=== PATIENT | male | born 1970 | race Caucasian/White ===

== ENCOUNTER → 2016-08-05 | Outpatient (CLI) | payer BC ==
[~2016-08-05] MED LIST: SODIUM CHLORIDE 0.9% 250 ML in EMPTY BAG 1 BAG IV PRN; SODIUM CHLORIDE 0.9% 500 ML in EMPTY BAG 1 BAG IV PRN
[2016-08-05 09:17] VITALS: TEMP 98.3
[2016-08-05 10:35] VITALS: BP 119/63; PULSE 60; RESP 16
== END | disposition home or self-care (01) ==
LOC: PROCWHC3 08:53
PROVIDERS: ATTEND Physician Assistant
DX: K50.819 Crohn's disease of both small and large intestine with unspecified complications (principal)
CPT/HCPCS: 96361; 96413; 96415; J1745

== ENCOUNTER → 2016-09-23 | Outpatient (CLI) | payer BC ==
[2016-09-23 09:16] VITALS: RESP 18; TEMP 98.4
[2016-09-23 10:33] VITALS: BP 109/53; PULSE 53
== END | disposition home or self-care (01) ==
LOC: PROCWHC3 08:52
PROVIDERS: ATTEND Physician Assistant
DX: K50.90 Crohn's disease, unspecified, without complications (principal)
CPT/HCPCS: 96361; 96413; 96415; J1745

== ENCOUNTER → 2016-11-11 | Outpatient (CLI) | payer BC ==
[2016-11-11 09:49] VITALS: TEMP 98.9
[2016-11-11 10:25] VITALS: RESP 18
[2016-11-11 11:06] VITALS: BP 102/59; PULSE 58
== END ==
LOC: PROCWHC3 08:53
PROVIDERS: ATTEND Physician Assistant
DX: K50.90 Crohn's disease, unspecified, without complications (principal)
CPT/HCPCS: 96413; 96415; J1745

== ENCOUNTER → 2016-12-30 | Outpatient (CLI) | payer BC ==
[2016-12-30 09:08] VITALS: RESP 18; TEMP 98.8
[2016-12-30 10:30] VITALS: PULSE 69
[2016-12-30 11:12] VITALS: BP 128/72
== END | disposition home or self-care (01) ==
LOC: PROCWHC3 08:47
PROVIDERS: ATTEND Physician Assistant
DX: K50.90 Crohn's disease, unspecified, without complications (principal)
CPT/HCPCS: 96413; 96415; J1745

== ENCOUNTER → 2017-01-19 | Outpatient (CLI) | payer BC ==
--- NOTE | 2017-01-19 16:52 | CONS ---
This patient is a 46-year-old gentleman who has been evaluated in the sleep center for obstructive sleep apnea/hypopnea syndrome. HISTORY OF PRESENT ILLNESS/SLEEP-WAKE EVALUATION: The patient's usual sleep schedule is from 10 p.m. to 4 a.m. on working days and from around 11 p.m. to 8 or 8:30 a.m. on weekends. Sometimes he has problems with falling asleep. He has a TV set in his bedroom. He usually on the side position. The patient snores, and his family told him about episodes of stopped breathing during sleep. He wakes up from sleep once with nocturia. Positive history of sweating at night. In the morning he wakes up tired, has problems with concentration. [place] Sleepiness Scale has increased to 10. Past medical history is positive for: 1. Crohn's disease. 2. Hyperlipidemia. 3. Hypertension. MEDICATIONS: 1. Remicade. 2. Crestor. 3. Prednisone. 4. Medication for blood pressure; patient does not remember the exact name. That includes a water pill and hypertension medication. SOCIAL HISTORY: Negative for smoking. Alcohol consumption rarely. PAST SURGICAL HISTORY: None. FAMILY HISTORY: Snoring, sleep apnea, hypertension, hyperlipidemia, asthma. PHYSICAL EXAM: The patient is a 46-year-old gentleman without distress. VITAL SIGNS: Blood pressure 157/86, heart rate 70, respiratory rate 18. Height 73.5. Weight 292.2. BMI 38. Neck 19 inches in circumference. Temperature 98.1. Oxygen saturation on room air 98%. GENERAL: A pleasant patient without distress. HEENT: PERRLA. EOMI. Evaluation of oropharynx showed tongue protrudes midline. Extremely low position of soft palate. Mallampati IV. Nose with asymmetric nasal pillows. NECK: Supple. No JVD. Thyroid is not palpable. LUNGS: Clear to percussion and to auscultation. Good air exchange. No wheezing or rhonchi. HEART: S1, S2 regular. No murmurs, gallops or rubs. ABDOMEN: Obese. EXTREMITIES: No clubbing or cyanosis. BOTTOM SANDER: Awake, alert and oriented x3. Cranial nerves 2 through 7 are intact. There is no fasciculation or atrophy noted. No focal deficits observed. IMPRESSION: 1. Snoring, witnessed episodes of stopped breathing during sleep; extremely low position of soft palate; awakenings from sleep; wide neck; [place] Sleepiness Scale increased to 10; obstructive sleep apnea/hypopnea syndrome. 2. Obesity. BMI of 38. 3. Crohn's disease. 4. Hypertension. 5. Hyperlipidemia. PLAN: 1. Polysomnography for evaluation of patients breathing during sleep. 2. CPAP/BiPAP titration if sleep study confirms obstructive sleep apnea/ hypopnea syndrome. 3. Preferable position during sleep on the side. 4. No driving if feeling any sleepiness. Patient is aware of civil and criminal liability for unsafe driving. 5. I will see this patient for follow-up visit to explain results of the testing and follow-up plan. Thank you very much for referring this patient for consultation. Sincerely, Fredy Conn. , PhD, FAASM. Diplomat of [employer], Sleep Medicine Board by [employer] [facility] [place]: NENITA
== END ==
LOC: SLEEP 10:42
PROVIDERS: ATTEND Family Medicine
DX: G47.33 Obstructive sleep apnea (adult) (pediatric) (principal); E66.9 Obesity, unspecified; I10 Essential (primary) hypertension; E78.5 Hyperlipidemia, unspecified; K50.90 Crohn's disease, unspecified, without complications; Z68.38 Body mass index [BMI] 38.0-38.9, adult; Z79.899 Other long term (current) drug therapy
CPT/HCPCS: 99211

== ENCOUNTER 2017-01-31 08:44 | Inpatient (IN) | payer BC ==
[2017-01-31] MEDS ORDERED: HYDROmorphone 1 MG/ML 1 ML SYRINGE IVP STA (09:26)
[2017-01-31] MEDS ORDERED: RX INFO: IV CONTRAST WAS GIVEN 1 EACH MISC MISCELLANE PRN (09:26)
[2017-01-31] MEDS ORDERED: SODIUM CHLORIDE 0.9% 1,000 ML IV STA ×2 (09:26)
[2017-01-31] MEDS ORDERED: ONDANSETRON 4 MG/2 ML VIAL IVP STA (09:26)
[2017-01-31 09:44] LABS: Basophils # (A) 0.1 k/uL (0-0.2); Basophils % (A) 0 %; CH 30.5; CHCM 33.1; Eosinophils % (A) 0 %; HCT 49.3 % (39.0-53.0); HDW 2.41; HGB 16.1 gm/dL (13.0-17.5); Luc # (Auto) 0.24; Luc % (Auto) 2; Lymphocytes # (A) 1.3 k/uL (1.0-4.8); Lymphocytes % (A) 10 %; MCH 30.1 pg (25.0-35.0); MCHC 32.6 g/dL (31.0-37.0); MCV 92.5 fL (80.0-100.0); Mean Platelet Volume 6.9; Monocytes # (A) 1.3 k/uL (0-1.0); Monocytes % (A) 10 %; Neutrophils # (A) 10.5 k/uL (1.3-7.7); Neutrophils % (A) 78 %; RBC 5.33 m/uL (4.30-5.90); RDW 15.2 % (11.5-15.5); WBC 13.5 k/uL (3.8-10.6); WBC (Perox) 13.56
[2017-01-31 09:55] LABS: Calcium 11.3 mg/dL (8.4-10.2); Potassium 4.6 mmol/L (3.5-5.1); Total Bilirubin 1.1 mg/dL (0.2-1.3); Total Protein 8.8 g/dL (6.3-8.2)
--- NOTE | 2017-01-31 10:03 | ED ---
General Adult HPI - General Source: patient, RN notes reviewed Mode of arrival: ambulatory Limitations: no limitations <Malachi Gomes - Last Filed: 01/31/17 11:20> <Mikie Fernandez - Last Filed: 01/31/17 11:53> - General Chief complaint: Abdominal Pain Stated complaint: Constipated Time Seen by Provider: 01/31/17 09:21 - History of Present Illness Initial comments: Patient 46-year-old male who presents emergency room today with a chief complaint of increased abdominal pain over the last 3 days. He does admit that he's been experiencing some discomfort in right side of the abdomen. He states it feels similar to a bowel blockage that he's had twice in the past. Patient does admit to a history of Crohn's. He states she's not had a bowel movement the past 3 days. States pain seems to be increasing. Patient denies any fevers but states he has been sweating. He denies any other complaints or symptoms at this time. Patient denies any recent fever, chills, shortness of breath, chest pain, back pain, nausea or vomiting, numbness or tingling, dysuria or hematuria, diarrhea, headaches or visual changes, or any other complaints. (Malachi Gomes) - Related Data Home Medications Medication Instructions Recorded Confirmed Atenolol/Chlorthalidone 1 cap PO DAILY 12/13/13 01/31/17 [Atenolol-Chlorthalidone 100-25] Fenofibrate [Fenofibrate] 160 mg PO DAILY 12/13/13 01/31/17 Rosuvastatin Calcium [Crestor] 20 mg PO DAILY 12/13/13 01/31/17 amLODIPine BESYLATE/BENAZEPRIL 1 cap PO DAILY 12/13/13 01/31/17 [Amlodipine-Benazepril 5-40 mg] Acetaminophen [Tylenol] 650 mg PO Q6HR PRN 01/31/17 01/31/17 inFLIXimab [Remicade] 1 injection IVPB Q42D 01/31/17 01/31/17 Allergies Allergy/AdvReac Type Severity Reaction Status Date / Time No Known Allergies Allergy Verified 01/31/17 10:10 Review of Systems ROS Other: All systems not noted in ROS Statement are negative. <Malachi Gomes - Last Filed: 01/31/17 11:20> ROS Other: All systems not noted in ROS Statement are negative. <Mikie Fernandez - Last Filed: 01/31/17 11:53> ROS Statement: Those systems with pertinent positive or pertinent negative responses have been documented in the HPI. Past Medical History Past Medical History: Hyperlipidemia, Hypertension Additional Past Medical History / Comment(s): Chron's disease History of Any Multi-Drug Resistant Organisms: None Reported Additional Past Surgical History / Comment(s): Draining of Anal Fissure - 1995, 1996, 2003 Past Psychological History: No Psychological Hx Reported Smoking Status: Never smoker Past Alcohol Use History: None Reported Past Drug Use History: None Reported <Malachi Gomes - Last Filed: 01/31/17 11:20> General Exam Limitations: no limitations <Malachi Gomes - Last Filed: 01/31/17 11:20> <PrestonMikie hayden J - Last Filed: 01/31/17 11:53> - General Exam Comments Initial Comments: General: The patient is awake and alert, in no distress, and does not appear acutely ill. Eye: Pupils are equal, round and reactive to light, extra-ocular movements are intact. No nystagmus. There is normal conjunctiva bilaterally. No signs of icterus. Ears, nose, mouth and throat: There are moist mucous membranes and no oral lesions. Neck: The neck is supple, there is no tenderness or JVD. Cardiovascular: There is a regular rate and rhythm. No murmur, rub or gallop is appreciated. Respiratory: Lungs are clear to auscultation, respirations are non-labored, breath sounds are equal. No wheezes, stridor, rales, or rhonchi. Gastrointestinal: Normal. 7. Normal bowel sounds. Soft on palpation. Patient does have tenderness in the right flank. No rebound tenderness. No guarding. No CVA tenderness. Musculoskeletal: Normal ROM, no tenderness. Strength 5/5. Sensation intact. Pulses equal bilaterally 2+. Neurological: A&O x 3. CN II-XII intact, There are no obvious motor or sensory deficits. Coordination appears grossly intact. Speech is normal. Skin: Skin is warm and dry and no rashes or lesions are noted. Psychiatric: Cooperative, appropriate mood & affect, normal judgment. (Malachi Gomes) Medical Decision Making - Lab Data Result diagrams: 01/31/17 09:24 01/31/17 09:24 <Malachi Gomes - Last Filed: 01/31/17 11:20> - Lab Data Result diagrams: 01/31/17 09:24 01/31/17 09:24 <Mikie Fernandez - Last Filed: 01/31/17 11:53> - Medical Decision Making CT the abdomen and pelvis does show 1. Multiple segmented trophic panic abscess with extension to the undersurface of the right lateral abdomen wall. Associated abdominal wall thickening possible early intramuscular abscess formation. 2. Chronic changes of the Crohn's disease. As read by radiologist Dr. Cueto. Case discussed with attending physician who patient at bedside. Did discuss case with on-call surgeon Dr. Pak who will see the patient. Will be admitted to the hospitalist (Malachi Gomes) The patient was seen and examined. All diagnostics were reviewed. Case was discussed with surgery and internal medicine and patient is admitted to the hospital. The case is discussed with the PA and agree with the findings as documented. (Mikie Fernandez) - Lab Data Lab Results 01/31/17 01/31/17 01/31/17 Range/Units 09:24 09:24 09:57 WBC 13.5 H (3.8-10.6) k/uL RBC 5.33 (4.30-5.90) m/uL Hgb 16.1 (13.0-17.5) gm/dL Hct 49.3 (39.0-53.0) % MCV 92.5 (80.0-100.0) fL MCH 30.1 (25.0-35.0) pg MCHC 32.6 (31.0-37.0) g/dL RDW 15.2 (11.5-15.5) % Plt Count 409 (150-450) k/uL Neutrophils % 78 % Lymphocytes % 10 % Monocytes % 10 % Eosinophils % 0 % Basophils % 0 % Neutrophils # 10.5 H (1.3-7.7) k/uL Lymphocytes # 1.3 (1.0-4.8) k/uL Monocytes # 1.3 H (0-1.0) k/uL Eosinophils # 0.0 (0-0.7) k/uL Basophils # 0.1 (0-0.2) k/uL Sodium 140 (137-145) mmol/L Potassium 4.6 (3.5-5.1) mmol/L Chloride 92 L (98-107) mmol/L Carbon Dioxide 32 H (22-30) mmol/L Anion Gap 16 mmol/L BUN 30 H (9-20) mg/dL Creatinine 1.56 H (0.66-1.25) mg/dL Est GFR (MDRD) Af Amer 58 (>60 ml/min/1.73 sqM) Est GFR (MDRD) Non-Af 48 (>60 ml/min/1.73 sqM) Glucose 147 H (74-99) mg/dL Plasma Lactic Acid Stuart 1.5 (0.7-2.0) mmol/L Calcium 11.3 H (8.4-10.2) mg/dL Total Bilirubin 1.1 (0.2-1.3) mg/dL AST 18 (17-59) U/L ALT 37 (21-72) U/L Alkaline Phosphatase 61 (38-126) U/L Total Protein 8.8 H (6.3-8.2) g/dL Albumin 4.6 (3.5-5.0) g/dL Amylase 43 (30-110) U/L Lipase 59 (23-300) U/L Disposition Time of Disposition: 11:11 <Malachi Gomes - Last Filed: 01/31/17 11:20> <Mikie Fernandez - Last Filed: 01/31/17 11:53> Clinical Impression: Liver abscess, Crohns disease, Leukocytosis, Abdominal pain Disposition: ADMITTED IP TO THIS HOSP Condition: Stable Referrals: Mitra Portillo DO [Primary Care Provider] - 1-2 days
[2017-01-31] MEDS ORDERED: SODIUM CHLORIDE 0.9% 500 ML IV STA (10:08)
--- NOTE | 2017-01-31 10:17 | CT ---
EXAMINATION TYPE: CT abdomen pelvis w con DATE OF EXAM: 01/31/2017 COMPARISON: NONE HISTORY: Crohns, constipation CT DLP: 2780.6 mGycm CONTRAST: CT scan of the abdomen and pelvis is performed without Oral Contrast and with IV Contrast, patient in jected with 100 mL of Omnipaque 300. FINDINGS: LUNG BASES-: No visible nodule. No infiltrate. LIVER/GB: There is a large multiseptated hypoattenuating mass with internal complex fluid arising fro m the anterior segment right hepatic lobe with exophytic component extending to the undersurface of t he right lateral abdominal wall felt to reflect abscess. There is abdominal wall thickening as well a s one or 2 small areas of decreased attenuation within the musculature which may reflect additional a bscess formation. No additional hepatic masses are identified. Changes of hepatic steatosis noted. Th e gallbladder is grossly unremarkable. PANCREAS: No inflammation. No distinct mass. SPLEEN: No splenic enlargement. No lesion seen. ADRENALS: No nodule. No thickening. KIDNEYS/BLADDER: No hydronephrosis. No nephrolithiasis. Small simple cyst left kidney. Urinary trina dder grossly unremarkable. 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 No active inflammation however is identified at this time. Linear density is noted exte nding towards the sigmoid colon and this may be related prior fistulous communication. Normal bowel c aliber. GENITAL ORGANS: No gross abnormality. LYMPH NODES: No greater than 1cm abdominal or pelvic lymph nodes are appreciated. AORTA: No significant abnormality. OSSEOUS STRUCTURES: No significant abnormality is seen. OTHER: There is a fat-containing umbilical hernia. Fat-containing inguinal hernias right greater than left. IMPRESSION: 1. Multiseptated exophytic hepatic abscess with extension to the undersurface of the right lateral ab dominal wall. Associated abdominal wall thickening and possible early intramuscular abscess formation . 2. Chronic changes of Crohn's disease as discussed above. No active Crohn's disease is suspected at t his time.
[2017-01-31] MEDS ORDERED: PIPERACILLIN-TAZOBACTAM 3.375 GM in DEXTROSE/WATER 1 50ML.BAG IVPB STA (10:25)
[2017-01-31] MEDS ORDERED: NALOXONE 0.4 MG/ML 1 ML VIAL IV PRN (11:21)
[2017-01-31] MEDS ORDERED: ACETAMINOPHEN TAB 325 MG TAB PO PRN (11:21)
[2017-01-31] MEDS ORDERED: ONDANSETRON 4 MG/2 ML VIAL IVP PRN (11:21)
[2017-01-31 12:15] LABS: Appearance,Urine Clear (Clear); Bilirubin,Urine Negative (Negative); Glucose,Urine (UA) Negative (Negative); Ketones,Urine Negative (Negative); Leukocyte Esterase,Urine Negative (Negative); Mucus,Urine Rare /hpf; Nitrite,Urine Negative (Negative); Particle Count 3354; Protein,Urine 1+ (Negative); RBC,Urine 3 /hpf (0-5); Squamous Epithelial Cell,Urine <1 /hpf (0-4); UA Billing (MACRO vs. MICRO) MICRO; Urobilinogen,Urine <2.0 mg/dL (<2.0); WBC,Urine <1 /hpf (0-5)
[2017-01-31 12:18] LABS: Specific Gravity,Urine >1.050 (1.001-1.035)
--- NOTE | 2017-01-31 13:39 | P.CON ---
Consult Note - . Consult date: 01/31/17 Assessment/Plan:: Thank you very much for asking us to see Mr. Alejo. He has a long history of Crohn's disease for over 20 years. Has been on Remicade steroids antibiotics off-and-on for control. Did have inserted a CT-guided drainage off a liver abscess presents now with pain in the right flank for the last 3 days or so progressively worsening. Did have some chills today which shaking. He presented to the emergency room. Has been a little constipated over the last 3 days. Crohn's has been fairly stable over the years. Past history. Positive for Crohn's. 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 Social history family history well-documented. Systems review as above. No cardiac or respiratory problems. No urinary symptoms. On examination the patient is well-built well-nourished overweight at the 129 kg. Hydration borderline color satisfactory head and neck otherwise normal. Heart and lungs are clear. Abdomen is obese soft with tenderness in the right flank area. No definite mass palpable no guarding or rebound. Has an umbilical hernia asymptomatic. Extremities normal. HAND SURGEON intact. WBCs 13,500. CT was reviewed. Impression of hepatic abscess recurrent. History of Crohn's disease. Abscess most likely related to his Crohn's. Recommendation. Recommend attempt at CT-guided drainage of the abscess again with an antibiotic which may be needed long-term depending on the cultures. Dr. Boudreaux we'll follow him on his return.
[2017-01-31 14:41] LABS: INR 1.3 (<1.2); Prothrombin Time 13.1 sec (9.0-12.0)
[2017-01-31] MEDS: HYDROmorphone 1 MG/ML 1 ML SYRINGE IV PRN (14:57)
[2017-01-31] MEDS: PIPERACILLIN-TAZOBACTAM 3.375 GM in DEXTROSE/WATER 1 50ML.BAG IVPB SCH (17:34)
[2017-02-01] MEDS: HYDROmorphone 1 MG/ML 1 ML SYRINGE IV PRN ×4 (00:20→22:02)
[2017-02-01] MEDS: PIPERACILLIN-TAZOBACTAM 3.375 GM in DEXTROSE/WATER 1 50ML.BAG IVPB SCH ×4 (00:22→23:54)
[2017-02-01 07:05] LABS: Basophils % (A) 0 %; CH 30.2; CHCM 32.3; Eosinophils % (A) 0 %; HCT 38.8 % (39.0-53.0); HDW 2.46; Luc # (Auto) 0.21; Luc % (Auto) 2; Lymphocytes % (A) 11 %; MCH 29.7 pg (25.0-35.0); MCHC 31.6 g/dL (31.0-37.0); MCV 93.9 fL (80.0-100.0); Monocytes % (A) 10 %; Neutrophils # (A) 6.9 k/uL (1.3-7.7); Neutrophils % (A) 75 %; RBC 4.14 m/uL (4.30-5.90); RDW 15.3 % (11.5-15.5); WBC 9.1 k/uL (3.8-10.6); WBC (Perox) 9.07
[2017-02-01 07:14] LABS: HGB 12.3 gm/dL (13.0-17.5)
[2017-02-01 07:22] LABS: ALT 36 U/L (21-72); AST 13 U/L (17-59); Alkaline Phosphatase 49 U/L (38-126); Anion Gap 12 mmol/L; Blood Urea Nitrogen 31 mg/dL (9-20); Calcium 9.3 mg/dL (8.4-10.2); Carbon Dioxide 27 mmol/L (22-30); Chloride 100 mmol/L (98-107); Glucose 105 mg/dL (74-99); Non-African American GFR(MDRD) >60 (>60 ml/min/1.73 sqM); Sodium 139 mmol/L (137-145); Total Bilirubin 0.6 mg/dL (0.2-1.3); Total Protein 6.5 g/dL (6.3-8.2)
--- NOTE | 2017-02-01 07:58 | CT ---
EXAMINATION TYPE: CT guided abscess drainage DATE OF EXAM: 01/31/2017 COMPARISON: NONE HISTORY: drainage tube placement CT DLP: 4647 mGycm The procedure is discussed with the patient, the risks, complications, benefits and alternatives, wer e discussed and any questions were answered. Informed consent was obtained. The patient is placed p vladimir on the CT table, prepped and draped in the usual sterile fashion. Utilizing a 22-gauge Chiba needle access into the hepatic abscess was achieved and there is placement of a guidewire. Subsequent serial dilation 8 Kyrgyz with placement 8 Kyrgyz drainage catheter. Appr oximately 100 cc of purulent material was aspirated. Sample sent to pathology. All elements of maxim al barrier and sterile technique were utilized. The patient remained stable throughout the procedure with no immediate postprocedural complication. IMPRESSION: 1. Successful CT guided hepatic abscess drainage tubes insertion.
--- NOTE | 2017-02-01 09:25 | HP ---
CHIEF COMPLAINT: Abdominal pain. HISTORY OF PRESENT ILLNESS: Mr. Alejo is a 46-year-old male with known history of Crohn's disease and hypertension. Came to the ER with complaints of increased abdominal pain for the past 3 days. Patient says that the patient was having a right upper quadrant and flank pain, which has been getting worse and started as a discomfort. Patient does have history of Crohn's disease and has been taking Remicade and the patient had exacerbation and was using steroids as well. Currently, the patient denied any abdominal pain. Patient has been constipated for the last 3 days. Otherwise, patient came to the ER for further evaluation and the patient was also having ( ) fevers and chills at home. Denied any chest pain or short of breath. No nausea or vomiting. No numbness or tingling. Patient had CT of the abdomen and pelvis. It showed multiseptated exophytic hepatic abscess with extension to the undersurface of the right lateral abdominal wall. Patient did have liver abscess about 10 years ago. Patient was seen by General Surgery and recommended CT guided drainage and patient underwent CT guided drainage with pigtail catheter placement draining serosanguineous discharge now. The patient says that abdominal discomfort is much improved now. REVIEW OF SYSTEMS: CONSTITUTIONAL: The patient did have subjective fevers and chills and no weakness or fatigue. RESPIRATORY: No cough or sputum production. CARDIOVASCULAR: No chest pain or short of breath. ABDOMEN: The patient does have right upper quadrant abdominal discomfort. No nausea or vomiting. Patient did have constipation. GENITOURINARY: No dysuria. No hematuria. ENDOCRINE: Negative. PSYCHIATRY: Negative. SKIN: Negative. All other 14-point review of systems negative except the above. PAST MEDICAL HISTORY: Hypertension, Crohn's disease and previous history of liver abscess 10 years ago, hyperlipidemia. PAST SURGICAL HISTORY: Drainage of anal fissure, history of liver abscess drainage. SOCIAL HISTORY: Patient never a smoker. Denied any alcohol, denied any drugs or IVDU. FAMILY HISTORY: Denied history of hypertension, diabetes mellitus or premature heart disease in the family. ALLERGIES: No known drug allergies. Home medications include: 1. Atenolol. 2. Chlorthalidone. 3. Fenofibrate. 4. Crestor. 5. Amlodipine. 6. Tylenol. 7. Remicade. PHYSICAL EXAMINATION: A 46-year-old male lying in bed, comfortable; awake, alert, oriented x3. Appears to be in no apparent distress. VITALS: Blood pressure is 119/69. Pulse is 62. Respirations 16. Temperature afebrile. Pulse ox 95% on room air. HEENT: Atraumatic, normocephalic. Neck is supple. No JVD. CVS EXAM: S1 and S2 heard. No murmurs, no gallop, no rub. LUNGS: Bilateral air entry is present. No wheezing, no crackles. Nonlabored breathing. ABDOMEN: Soft, nontender. Bowel sounds are present. REPLENISHMENT SPECIALIST: Awake, alert, oriented x3. No focal deficit. EXTREMITIES: No edema. Pulses felt bilaterally. No clubbing or cyanosis. PSYCHIATRIC: Cooperative. LABORATORY DATA: WBC 13.5, hemoglobin 16.1, platelets 409. INR 1.3. Sodium 140 , potassium 4.6, chloride 92, bicarb is 32. BUN 30, creatinine 1.56. Lactic acid 1.5. Calcium 11.3. UA negative. CT of abdomen and pelvis reviewed. IMPRESSION: 1. Liver abscess, status post CT guided drainage. 2. History of Crohn's disease with recent exacerbation and chronically on Remicade and steroids on and off. 3. Previous history of liver abscess 10 years ago. 4. Hypertension. 5. Hyperlipidemia. 6. Sepsis secondary to liver abscess. Patient did have tachycardia and leukocytosis on admission. 7. Morbid obesity with body mass index of 36.6. 8. Acute kidney injury, likely prerenal. 9. Mild hypercalcemia. DISCUSSION AND PLAN: Patient will be continued on IV fluids, continue with antibiotics in the form of Zosyn and CT guided drainage was done. General Surgery is following the patient. Further recommendation based on the clinical course. Patient symptomatically improved after drainage. DONAVOND
--- NOTE | 2017-02-01 09:55 | P.CONS ---
History of Present Illness - Reason for Consult Consult date: 02/01/17 Abscess - History of Present Illness This is a 46-year-old male with past medical history significant for Crohn's disease on Remicade. He gives history that he has had 3 previous episodes of abscess formation but has been been pretty stable until July of this year. He states he has had quite a few flareups of since July and has been on antibiotics with Cipro or Levaquin and prednisone. He states he took his last dose of prednisone 3 days ago and he took Levaquin on Monday. Patient states he developed abdominal pain for 3 days on the right upper quadrant which continued to worsen. He denies having any fever or chills. He did not have a bowel movement prior to arrival for 3 days but he states he did have a bowel movement 4 AM today that was dark but no blood in it was not watery. He presented to [facility] emergency center on January 31. CAT scan of the abdomen and pelvis revealed multi septated exophytic hepatic abscess with extension to the undersurface of the right lateral abdominal wall. Associated abdominal wall thickening and possible early intramuscular abscess formation. Chronic changes of Crohn's disease but no active Crohn's disease suspected at this time. His white count was at 13.5 which is improved to 9. Patient also was found to have acute kidney injury with BUN of 30 and creatinine 1.56 which is improving. Patient was started on Zosyn and admitted to the [facility] floor. He subsequently underwent a CAT scan guided hepatic abscess drainage tube insertion with initially 100 mL of purulent material was aspirated. Cytology is pending. Gram stain showed many polymorphonuclear leukocytes and many gram-positive cocci and culture is in progress. The patient is on a soft diet and tolerating this with no nausea or vomiting. He's continues to have pressure in the right upper quadrant which is improved. Review of Systems All systems: negative Constitutional: Denies chills, Denies fever Eyes: denies blurred vision, denies pain Ears, nose, mouth and throat: Denies headache, Denies sore throat Cardiovascular: Denies chest pain, Denies shortness of breath Respiratory: Denies cough Gastrointestinal: Reports abdominal pain, Reports constipation, Denies diarrhea , Denies nausea, Denies vomiting Musculoskeletal: Denies myalgias Integumentary: Denies pruritus, Denies rash Neurological: Denies numbness, Denies weakness Psychiatric: Denies anxiety, Denies depression Endocrine: Denies fatigue, Denies weight change Past Medical History Past Medical History: Hyperlipidemia, Hypertension Additional Past Medical History / Comment(s): Chron's disease, abdominal bowel fissures and with first one he had severe infection, small bowel is narrowing, just completed home study for possible DIANNA-waiting for results. History of Any Multi-Drug Resistant Organisms: None Reported Additional Past Surgical History / Comment(s): Draining of bowel fiissure thru R side- 1995, 1996, 2003, colonoscopies. Past Anesthesia/Blood Transfusion Reactions: No Reported Reaction Smoking Status: Never smoker Additional Past Alcohol Use History / Comment(s): Patient is a lifelong nonsmoker. He denies any medical marijuana, marijuana, street drug or alcohol use. Patient is single and lives alone. He does not have pets in the home. 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 - Past Family History Father Family Medical History: No Reported History Mother Family Medical History: No Reported History Medications and Allergies Home Medications Medication Instructions Recorded Confirmed Type Atenolol/Chlorthalidone 1 cap PO DAILY 12/13/13 01/31/17 History [Atenolol-Chlorthalidone 100-25] Fenofibrate [Fenofibrate] 160 mg PO DAILY 12/13/13 01/31/17 History Rosuvastatin Calcium [Crestor] 20 mg PO DAILY 12/13/13 01/31/17 History amLODIPine BESYLATE/BENAZEPRIL 1 cap PO DAILY 12/13/13 01/31/17 History [Amlodipine-Benazepril 5-40 mg] Acetaminophen [Tylenol] 650 mg PO Q6HR PRN 01/31/17 01/31/17 History inFLIXimab [Remicade] 1 injection IVPB Q42D 01/31/17 01/31/17 History Allergies Allergy/AdvReac Type Severity Reaction Status Date / Time No Known Allergies Allergy Verified 01/31/17 10:10 Physical Exam Vitals: Vital Signs Temp Pulse Pulse Resp BP BP Pulse Ox 02/01/17 07:40 97.7 F 56 L 16 118/72 96 02/01/17 03:37 97.5 F L 54 L 17 118/65 95 01/31/17 21:00 97.3 F L 75 17 104/65 01/31/17 18:30 64 117/64 01/31/17 18:15 63 110/68 01/31/17 18:00 57 L 99/57 01/31/17 17:45 63 108/60 01/31/17 17:30 56 L 108/59 01/31/17 17:15 59 L 106/66 01/31/17 17:00 63 106/61 01/31/17 16:45 65 118/66 01/31/17 16:30 61 16 117/57 98 01/31/17 15:50 62 18 141/69 95 01/31/17 15:29 70 20 131/66 99 01/31/17 15:25 85 20 117/69 93 L 01/31/17 15:16 64 20 124/70 95 01/31/17 14:55 98.1 F 62 16 119/69 95 01/31/17 12:53 97.2 F L 70 16 126/60 95 01/31/17 12:28 98.6 F 68 20 113/55 93 L 01/31/17 10:13 76 18 115/68 92 L 01/31/17 09:35 99.1 F 84 16 155/76 94 L Intake and Output 01/31/17 02/01/17 02/01/17 22:59 06:59 14:59 Intake Total 100 600 250 Output Total 250 800 Balance -150 -200 250 Intake: Oral 100 600 250 Output: Urine 250 800 Other: # Bowel Movements 1 Gen: This is a 46-year-old obese male. He is in bed and appears to be comfortable. No acute distress is noted. HEENT: Head is atraumatic, normocephalic. Pupils equal, round. Sclerae is anicteric. Conjunctiva pink. Mucous members of the mouth are moist. No thrush noted. Dentition in good order.. NECK: Supple. No JVD. No lymphadenopathy. No thyromegaly. LUNGS: Clear to auscultation. No wheezes or rhonchi. No intercostal retractions. HEART: Regular rate and rhythm. No murmur. ABDOMEN: Soft. Bowel sounds are present. No masses. Tenderness to the right upper quadrant and right lateral abdomen. EXTREMITIES: No pedal edema. No calf tenderness. Dorsalis pedis +2 bilaterally. NEUROLOGICAL: Patient is awake, alert and oriented x3. Cranial nerves 2 through 12 are grossly intact. Results Results: Laboratory Results WBC 9.1 k/uL (3.8-10.6) 02/01/17 06:45 RBC 4.14 m/uL (4.30-5.90) L 02/01/17 06:45 Hgb 12.3 gm/dL (13.0-17.5) L D 02/01/17 06:45 Hct 38.8 % (39.0-53.0) L 02/01/17 06:45 MCV 93.9 fL (80.0-100.0) 02/01/17 06:45 MCH 29.7 pg (25.0-35.0) 02/01/17 06:45 MCHC 31.6 g/dL (31.0-37.0) 02/01/17 06:45 RDW 15.3 % (11.5-15.5) 02/01/17 06:45 Plt Count 277 k/uL (150-450) 02/01/17 06:45 Neutrophils % 75 % 02/01/17 06:45 Lymphocytes % 11 % 02/01/17 06:45 Monocytes % 10 % 02/01/17 06:45 Eosinophils % 0 % 02/01/17 06:45 Basophils % 0 % 02/01/17 06:45 Neutrophils # 6.9 k/uL (1.3-7.7) 02/01/17 06:45 Lymphocytes # 1.0 k/uL (1.0-4.8) 02/01/17 06:45 Monocytes # 1.0 k/uL (0-1.0) 02/01/17 06:45 Eosinophils # 0.0 k/uL (0-0.7) 02/01/17 06:45 Basophils # 0.0 k/uL (0-0.2) 02/01/17 06:45 PT 13.1 sec (9.0-12.0) H 01/31/17 09:24 INR 1.3 (<1.2) H 01/31/17 09:24 Sodium 139 mmol/L (137-145) 02/01/17 06:45 Potassium 4.0 mmol/L (3.5-5.1) 02/01/17 06:45 Chloride 100 mmol/L (98-107) 02/01/17 06:45 Carbon Dioxide 27 mmol/L (22-30) 02/01/17 06:45 Anion Gap 12 mmol/L 02/01/17 06:45 BUN 31 mg/dL (9-20) H 02/01/17 06:45 Creatinine 1.14 mg/dL (0.66-1.25) 02/01/17 06:45 Est GFR (MDRD) Af Amer >60 (>60 ml/min/1.73 sqM) 02/01/17 06:45 Est GFR (MDRD) Non-Af >60 (>60 ml/min/1.73 sqM) 02/01/17 06:45 Glucose 105 mg/dL (74-99) H 02/01/17 06:45 Plasma Lactic Acid [place] 1.5 mmol/L (0.7-2.0) 01/31/17 09:57 Calcium 9.3 mg/dL (8.4-10.2) 02/01/17 06:45 Total Bilirubin 0.6 mg/dL (0.2-1.3) 02/01/17 06:45 AST 13 U/L (17-59) L 02/01/17 06:45 ALT 36 U/L (21-72) 02/01/17 06:45 Alkaline Phosphatase 49 U/L (38-126) 02/01/17 06:45 Total Protein 6.5 g/dL (6.3-8.2) 02/01/17 06:45 Albumin 3.3 g/dL (3.5-5.0) L 02/01/17 06:45 Amylase 43 U/L (30-110) 01/31/17 09:24 Lipase 59 U/L (23-300) 01/31/17 09:24 Urine Color Yellow 01/31/17 10:17 Urine Appearance Clear (Clear) 01/31/17 10:17 Urine pH 6.0 (5.0-8.0) 01/31/17 10:17 Ur Specific [place] >1.050 (1.001-1.035) H 01/31/17 10:17 Urine Protein 1+ (Negative) H 01/31/17 10:17 Urine Glucose (UA) Negative (Negative) 01/31/17 10:17 Urine Ketones Negative (Negative) 01/31/17 10:17 Urine Blood Trace (Negative) H 01/31/17 10:17 Urine Nitrite Negative (Negative) 01/31/17 10:17 Urine Bilirubin Negative (Negative) 01/31/17 10:17 Urine Urobilinogen <2.0 mg/dL (<2.0) 01/31/17 10:17 Ur Leukocyte Esterase Negative (Negative) 01/31/17 10:17 Urine RBC 3 /hpf (0-5) 01/31/17 10:17 Urine WBC <1 /hpf (0-5) 01/31/17 10:17 Ur Squamous Epith Cells <1 /hpf (0-4) 01/31/17 10:17 Urine Mucus Rare /hpf (None) H 01/31/17 10:17 CBC & Chem 7: 02/01/17 06:45 02/01/17 06:45 Labs: Abnormal Lab Results - Last 24 Hours (Table) 01/31/17 01/31/17 01/31/17 Range/Units 09:24 09:24 09:24 WBC 13.5 H (3.8-10.6) k/uL RBC (4.30-5.90) m/uL Hgb (13.0-17.5) gm/dL Hct (39.0-53.0) % Neutrophils # 10.5 H (1.3-7.7) k/uL Monocytes # 1.3 H (0-1.0) k/uL PT 13.1 H (9.0-12.0) sec INR 1.3 H (<1.2) Chloride 92 L (98-107) mmol/L Carbon Dioxide 32 H (22-30) mmol/L BUN 30 H (9-20) mg/dL Creatinine 1.56 H (0.66-1.25) mg/dL Glucose 147 H (74-99) mg/dL Calcium 11.3 H (8.4-10.2) mg/dL AST (17-59) U/L Total Protein 8.8 H (6.3-8.2) g/dL Albumin (3.5-5.0) g/dL Ur Specific [place] (1.001-1.035) Urine Protein (Negative) Urine Blood (Negative) Urine Mucus (None) /hpf 01/31/17 02/01/1717 Range/Units 10:17 06:45 06:45 WBC (3.8-10.6) k/uL RBC 4.14 L (4.30-5.90) m/uL Hgb 12.3 L D (13.0-17.5) gm/dL Hct 38.8 L (39.0-53.0) % Neutrophils # (1.3-7.7) k/uL Monocytes # (0-1.0) k/uL PT (9.0-12.0) sec INR (<1.2) Chloride (98-107) mmol/L Carbon Dioxide (22-30) mmol/L BUN 31 H (9-20) mg/dL Creatinine (0.66-1.25) mg/dL Glucose 105 H (74-99) mg/dL Calcium (8.4-10.2) mg/dL AST 13 L (17-59) U/L Total Protein (6.3-8.2) g/dL Albumin 3.3 L (3.5-5.0) g/dL Ur Specific [place] >1.050 H (1.001-1.035) Urine Protein 1+ H (Negative) Urine Blood Trace H (Negative) Urine Mucus Rare H (None) /hpf Microbiology - Last 24 Hours (Table) 01/31/17 15:40 Gram Stain - Preliminary Aspirate Body Fluid Culture - Preliminary 01/31/17 15:40 Anaerobic Culture - Preliminary Aspirate Assessment and Plan Plan: This is a 46-year-old male who presented to the hospital with abdominal pain and found on CAT scan to have hepatic abscess status post CT guided drainage tube placement secondary to his underlying Crohn's disease. Patient is currently on Zosyn which will be continued. Await culture and cytology reports. Continue supportive care. Further recommendations as patient progresses. The above dictated assessment and findings were discussed with Dr. Loyd. The impression and plan of care have been directed as dictated. Argelia Arce nurse practitioner acting as scribe for Dr. Loyd.
--- NOTE | 2017-02-01 10:35 | P.CONS ---
History of Present Illness - Reason for Consult Consult date: 02/01/17 Liver abscess Requesting physician: Cristina Villarreal - History of Present Illness 46-year-old gentleman with a history of Crohn's ileitis diagnosed about 20 years ago maintained on Remicade with multiple perirectal/abdominal fistulas last one approximately 10 years ago; percutaneously drained. Admitted with abdominal pain the last 3-4 days without fever or hematemesis hematochezia or melena. Patient's last dose of Remicade was about 5-6 weeks ago. He has been on prednisone for the last 2 months secondary to Crohn's flareup type symptoms with increased nonbloody bowel movements. He weaned himself down to 20 mg of prednisone daily last week but increased it to 40 mg daily a few days prior to hospitalization. CT abdomen and pelvis reported multiseptated exophytic hepatic abscess with extension to the undersurface of the right lateral abdominal wall with associated abdominal wall thickening possible early intramuscular abscess formation. Chronic changes of the distal ileum terminal ileum compatible with history of Crohn's disease without active Crohn's disease. No interloop bowel abscesses mentioned. White count 9.1-13.5. Hemoglobin 12.3. INR 1.3. BUN 30. Creatinine 1.5. LFTs normal. T-max 99.3. He underwent percutaneous drainage of liver abscess yesterday with 100 mL removal of purulent aspirate; fluid culture obtained. Last colonoscopy to his memory about 3-4 years ago. Presently denies diarrhea he had 1 bowel movement this morning. Review of Systems Constitutional: Denies fever, chills, sweats, weight gain, or loss. HEENT: Negative for migraines, blurred vision or loss, earaches, drainage, tinnitus, oral mucosal lesions, dysphagia, or odynophagia. Cardiac: Hyperlipidemia. Hypertension. Negative for chest pain, arrhythmias, or palpitation. Respiratory: Negative for shortness of breath, hemoptysis, cough, or sputum production. Gastrointestinal: See HPI for pertinent findings. Genitourinary: Negative for hematuria, urgency, frequency, polyuria, dysuria, or penile discharge. Musculoskeletal: Negative for muscle aches, swelling, arthritis, and arthralgias. Neurologic: Negative for stroke or TIA. Endocrine: Negative for thyroid problems. Skin: Negative for rash or itching. Psychiatric: Negative history for depression and anxiety All systems: negative (See HPI) Past Medical History Past Medical History: Hyperlipidemia, Hypertension Additional Past Medical History / Comment(s): Chron's disease, abdominal bowel fissures and with first one he had severe infection, small bowel is narrowing, just completed home study for possible DIANNA-waiting for results. History of Any Multi-Drug Resistant Organisms: None Reported Additional Past Surgical History / Comment(s): Draining of bowel fiissure thru R side- 1995, 1996, 2003, colonoscopies. Past Anesthesia/Blood Transfusion Reactions: No Reported Reaction Smoking Status: Never smoker Additional Past Alcohol Use History / Comment(s): Patient is a lifelong nonsmoker. He denies any medical marijuana, marijuana, street drug or alcohol use. Patient is single and lives alone. He does not have pets in the home. 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 - Past Family History Father Family Medical History: No Reported History Mother Family Medical History: No Reported History Medications and Allergies Home Medications Medication Instructions Recorded Confirmed Type Atenolol/Chlorthalidone 1 cap PO DAILY 12/13/13 01/31/17 History [Atenolol-Chlorthalidone 100-25] Fenofibrate [Fenofibrate] 160 mg PO DAILY 12/13/13 01/31/17 History Rosuvastatin Calcium [Crestor] 20 mg PO DAILY 12/13/13 01/31/17 History amLODIPine BESYLATE/BENAZEPRIL 1 cap PO DAILY 12/13/13 01/31/17 History [Amlodipine-Benazepril 5-40 mg] Acetaminophen [Tylenol] 650 mg PO Q6HR PRN 01/31/17 01/31/17 History inFLIXimab [Remicade] 1 injection IVPB Q42D 01/31/17 01/31/17 History Allergies Allergy/AdvReac Type Severity Reaction Status Date / Time No Known Allergies Allergy Verified 01/31/17 10:10 Physical Exam Vitals: Vital Signs Temp Pulse Pulse Resp BP BP Pulse Ox 02/01/17 07:40 97.7 F 56 L 16 118/72 96 02/01/17 03:37 97.5 F L 54 L 17 118/65 95 01/31/17 21:00 97.3 F L 75 17 104/65 01/31/17 18:30 64 117/64 01/31/17 18:15 63 110/68 01/31/17 18:00 57 L 99/57 01/31/17 17:45 63 108/60 01/31/17 17:30 56 L 108/59 01/31/17 17:15 59 L 106/66 01/31/17 17:00 63 106/61 01/31/17 16:45 65 118/66 01/31/17 16:30 61 16 117/57 98 01/31/17 15:50 62 18 141/69 95 01/31/17 15:29 70 20 131/66 99 01/31/17 15:25 85 20 117/69 93 L 01/31/17 15:16 64 20 124/70 95 01/31/17 14:55 98.1 F 62 16 119/69 95 01/31/17 12:53 97.2 F L 70 16 126/60 95 01/31/17 12:28 98.6 F 68 20 113/55 93 L Intake and Output 01/31/17 02/01/17 02/01/17 22:59 06:59 14:59 Intake Total 100 600 250 Output Total 250 800 Balance -150 -200 250 Intake: Oral 100 600 250 Output: Urine 250 800 Other: # Bowel Movements 1 General appearance: The patient is alert, oriented, in no acute distress. HET: Head is normocephalic and atraumatic. Pupils are equal and reactive. Oropharynx is clear without lesions. Neck: Supple without lymphadenopathy. Trachea midline. Heart: S1 S2. Regular rate and rhythm. Lungs: No crackles or wheezes are heard. Abdomen: Soft, right abdominal wall percutaneous drain with serosanguineous purulent drainage with minimal tenderness. No erythema or induration or warmth appreciated. Nondistended with bowel sounds. No peritoneal signs. No palpable organomegaly or masses. Extremities: Normal skin color and turgor. No cyanosis, rash, ulceration, clubbing, or edema. Radial and pedal pulses are 2/4 bilaterally. Neurological: No focal deficits. Strength and sensation are grossly intact. Results CBC & Chem 7: 02/01/17 06:45 02/01/17 06:45 Labs: Abnormal Lab Results - Last 24 Hours (Table) 01/31/17 01/31/17 02/01/17 Range/Units 09:24 10:17 06:45 RBC 4.14 L (4.30-5.90) m/uL Hgb 12.3 L D (13.0-17.5) gm/dL Hct 38.8 L (39.0-53.0) % PT 13.1 H (9.0-12.0) sec INR 1.3 H (<1.2) BUN (9-20) mg/dL Glucose (74-99) mg/dL AST (17-59) U/L Albumin (3.5-5.0) g/dL Ur Specific [place] >1.050 H (1.001-1.035) Urine Protein 1+ H (Negative) Urine Blood Trace H (Negative) Urine Mucus Rare H (None) /hpf 02/01/17 Range/Units 06:45 RBC (4.30-5.90) m/uL Hgb (13.0-17.5) gm/dL Hct (39.0-53.0) % PT (9.0-12.0) sec INR (<1.2) BUN 31 H (9-20) mg/dL Glucose 105 H (74-99) mg/dL AST 13 L (17-59) U/L Albumin 3.3 L (3.5-5.0) g/dL Ur Specific [place] (1.001-1.035) Urine Protein (Negative) Urine Blood (Negative) Urine Mucus (None) /hpf Microbiology - Last 24 Hours (Table) 01/31/17 15:40 Gram Stain - Preliminary Aspirate Body Fluid Culture - Preliminary 01/31/17 15:40 Anaerobic Culture - Preliminary Aspirate CT scan - abdomen: report reviewed (Dr. You) Assessment and Plan (1) Liver abscess Narrative/Plan: Status post percutaneous drainage Status: Acute (2) Abdominal pain Status: Acute (3) Crohns disease Status: Acute Plan: 1. IV antibiotics with ID consultation. General surgical consultation. 2. Diet as tolerated. Hold off on steroids for now as there is no evidence of active Crohn's disease on CT. Hold Remicade infusion on February 15 will be postponed until present infection is resolved. Continue supportive measures. Will follow closely with you. Thank you for this kind referral and the opportunity to participate in the care of your patient. This consultation was discussed with Dr. You. The impression and plan of care have been directed as dictated.
[2017-02-01 15:17] VITALS: BMI 36.6
--- NOTE | 2017-02-01 16:54 | P.CON ---
Consult Note - . Consult date: 02/01/17 Assessment/Plan:: This is a 46-year-old male with past medical history significant for Crohn's disease on Remicade. He gives history that he has had 3 previous episodes of abscess formation but has been been pretty stable until July of this year. He states he has had quite a few flareups of since July and has been on antibiotics with Cipro or Levaquin and prednisone. He states he took his last dose of prednisone 3 days ago and he took Levaquin on Monday. Patient states he developed abdominal pain for 3 days on the right upper quadrant which continued to worsen. He denies having any fever or chills. He did not have a bowel movement prior to arrival for 3 days but he states he did have a bowel movement 4 AM today that was dark but no blood in it was not watery. He presented to [facility] emergency center on January 31. CAT scan of the abdomen and pelvis revealed multi septated exophytic hepatic abscess with extension to the undersurface of the right lateral abdominal wall. Associated abdominal wall thickening and possible early intramuscular abscess formation. Chronic changes of Crohn's disease but no active Crohn's disease suspected at this time. His white count was at 13.5 which is improved to 9. Patient also was found to have acute kidney injury with BUN of 30 and creatinine 1.56 which is improving. Patient was started on Zosyn and admitted to the [facility] floor. He subsequently underwent a CAT scan guided hepatic abscess drainage tube insertion with initially 100 mL of purulent material was aspirated. Cytology is pending. Gram stain showed many polymorphonuclear leukocytes and many gram-positive cocci and culture is in progress. The patient is on a soft diet and tolerating this with no nausea or vomiting. He's continues to have pressure in the right upper quadrant which is improved. Please see the consult note is dictated by nurse practitioner Argelia Yazmin. This pleasant 46-year-old male has a long-standing history of Crohn's disease who in 2002 developed a hepatic abscess. It is noted the patient was feeling poorly for a few days. He was having difficulties with his Crohn's disease. He increase his level of immunosuppression with his prednisone. And then he developed the significant increasing abdominal pain. His coworkers related that he looked ill and pale. As the pain increased he finally presented to the emergency center and as noted was found evidence of the significant hepatic abscess. He is now status post percutaneous drainage and likely has a streptococcal infection. The pathophysiology of hepatic abscesses discussed with the patient in that it routinely is related to bowel disease and immunosuppression. If possible moxifloxacin can be utilized at the time of his discharge however likely will need intravenous antibiotic therapy. Currently responding well to Zosyn. Blood cultures are negative so far. Going supportive care. Pain management is adequate. Albumin is low. We'll check a pre-albumin likely need protein supplementation to help him with his recovery. Multivitamin with zinc will be added. I will monitor. I agree with evaluation, assessment and plan as dictated by nurse practitioner Mrs. Argelia Arce.
--- NOTE | 2017-02-01 18:40 | P.PN ---
Subjective Principal diagnosis: Hepatic abscess Patient feels better today after his percutaneous drainage yesterday. Still with some purulent drainage from the drain itself. He is currently afebrile. Cultures are showing gram-positive cocci. Anaerobic is negative thus far. Objective - Vital Signs Vital signs: Vital Signs Temp 97.7 F 02/01/17 07:40 Pulse 56 L 02/01/17 07:40 Resp 16 02/01/17 07:40 BP 118/72 02/01/17 07:40 Pulse Ox 96 02/01/17 07:40 Intake & Output 01/31/17 02/01/17 02/01/17 18:59 06:59 18:59 Intake Total 700 250 Output Total 1050 800 Balance -350 -550 Weight 129.274 kg 129.274 kg Intake: Oral 700 250 Output: Urine 1050 800 Other: # Voids 3 # Bowel Movements 1 - Exam Abdomen: Soft, Mild right upper quadrant tenderness - Labs CBC & Chem 7: 02/01/17 06:45 02/01/17 06:45 Labs: Abnormal Lab Results - Last 24 Hours (Table) 02/01/17 02/01/17 Range/Units 06:45 06:45 RBC 4.14 L (4.30-5.90) m/uL Hgb 12.3 L D (13.0-17.5) gm/dL Hct 38.8 L (39.0-53.0) % BUN 31 H (9-20) mg/dL Glucose 105 H (74-99) mg/dL AST 13 L (17-59) U/L Albumin 3.3 L (3.5-5.0) g/dL Microbiology - Last 24 Hours (Table) 01/31/17 09:57 Blood Culture - Preliminary Blood No Growth after 24 hours 01/31/17 15:40 Gram Stain - Preliminary Aspirate Body Fluid Culture - Preliminary 01/31/17 15:40 Anaerobic Culture - Preliminary Aspirate Assessment and Plan (1) Liver abscess Narrative/Plan: Continue IV antibiotics. Continue drain to dependent drainage. Continue diet. We'll follow with you. Status: Acute
--- NOTE | 2017-02-01 23:52 | P.PN ---
Subjective Mr. Alejo is a 46-year-old male with known history of Crohn's disease and hypertension. Came to the ER with complaints of increased abdominal pain for the past 3 days. Patient says that the patient was having a right upper quadrant and flank pain, which has been getting worse and started as a discomfort. Patient does have history of Crohn's disease and has been taking Remicade and the patient had exacerbation and was using steroids as well. Currently, the patient denied any abdominal pain. Patient has been constipated for the last 3 days. Otherwise, patient came to the ER for further evaluation and the patient was also having fevers and chills at home. Denied any chest pain or short of breath. No nausea or vomiting. No numbness or tingling. Patient had CT of the abdomen and pelvis. It showed multiseptated exophytic hepatic abscess with extension to the undersurface of the right lateral abdominal wall. Patient was seen by General Surgery and recommended CT guided drainage and patient underwent CT guided drainage with pigtail catheter placement draining serosanguineous discharge now. The patient says that abdominal discomfort is much improved now. On 02/01/2017 - patient denies having any new complaints. Patient states his abdominal pain has improved a lot. Review of systems Cardiac - no chest pain palpitations Respiratory - no cough no difficulty in breathing - no dysuria or hematuria [employer] - denies having any headaches blurring of vision slurring of speech Objective - Vital Signs Vital signs: Vital Signs Temp 96.1 F L 02/01/17 20:23 Pulse 93 02/01/17 20:23 Resp 16 02/01/17 20:23 BP 143/79 02/01/17 20:23 Pulse Ox 95 02/01/17 20:23 Intake & Output 02/01/17 02/01/17 02/02/17 06:59 18:59 06:59 Intake Total 700 250 840 Output Total 1050 800 Balance -350 -550 840 Weight 129.274 kg Intake: Oral 700 250 840 Output: Urine 1050 800 Other: # Voids 3 1 # Bowel Movements 1 - Exam HEENT: Atraumatic, normocephalic. Neck is supple. No JVD. CVS EXAM: S1 and S2 heard. No murmurs, no gallop, no rub. LUNGS: Bilateral air entry is present. No wheezing, no crackles. Nonlabored breathing. ABDOMEN: Soft, nontender. Bowel sounds are present. Hepatic drain in place with some serosanguineous discharge. [employer]: Awake, alert, oriented x3. No focal deficit. EXTREMITIES: No edema. Pulses felt bilaterally. No clubbing or cyanosis. PSYCHIATRIC: Cooperative - Labs CBC & Chem 7: 02/01/17 06:45 02/01/17 06:45 Labs: Abnormal Lab Results - Last 24 Hours (Table) 02/01/17 02/01/17 Range/Units 06:45 06:45 RBC 4.14 L (4.30-5.90) m/uL Hgb 12.3 L D (13.0-17.5) gm/dL Hct 38.8 L (39.0-53.0) % BUN 31 H (9-20) mg/dL Glucose 105 H (74-99) mg/dL AST 13 L (17-59) U/L Albumin 3.3 L (3.5-5.0) g/dL Microbiology - Last 24 Hours (Table) 01/31/17 09:57 Blood Culture - Preliminary Blood No Growth after 24 hours 01/31/17 15:40 Gram Stain - Preliminary Aspirate Body Fluid Culture - Preliminary 01/31/17 15:40 Anaerobic Culture - Preliminary Aspirate Assessment and Plan Plan: 1. Liver abscess, status post CT guided drainage. 2. History of Croh. n's disease with recent exacerbation and chronically on Remicade and steroids on and off. 3. Previous history of liver abscess 10 years ago. 4. Hypertension. 5. Hyperlipidemia. 6. Sepsis secondary to liver abscess. Patient did have tachycardia and leukocytosis on admission. 7. Morbid obesity with body mass index of 36.6. 8. Acute kidney injury, likely prerenal. 9. Mild hypercalcemia. DISCUSSION AND PLAN: Patient will be continued on IV fluids, continue with antibiotics in the form of Zosyn and CT guided drainage was done. General Surgery is following the patient. Further recommendation based on the clinical course. Patient symptomatically improved after drainage.
[2017-02-02] MEDS: HYDROmorphone 1 MG/ML 1 ML SYRINGE IV PRN ×5 (04:12→23:28)
[2017-02-02] MEDS: PIPERACILLIN-TAZOBACTAM 3.375 GM in DEXTROSE/WATER 1 50ML.BAG IVPB SCH ×3 (08:19→23:29)
[2017-02-02] MEDS: MULTIVITAMINS, THERA 1 EACH TAB PO SCH (11:31)
--- NOTE | 2017-02-02 11:53 | P.PN ---
Subjective Principal diagnosis: Liver abscess History of Crohn's. Status post percutaneous drainage for liver abscess. Feels better. Afebrile. Reports mild right-sided abdominal pain. Blood cultures no growth so far. Fluid cultures pending. Multiple consultants following. Objective - Vital Signs Vital signs: Vital Signs Temp 98.4 F 02/02/17 08:14 Pulse 90 02/02/17 08:14 Resp 18 02/02/17 08:14 BP 152/85 02/02/17 08:14 Pulse Ox 93 L 02/02/17 08:14 Intake & Output 02/01/17 02/02/17 02/02/17 18:59 06:59 18:59 Intake Total 250 1140 360 Output Total 800 175 800 Balance -550 965 -440 Weight 129.274 kg 129.274 kg Intake: Intake, IV Titration 50 Amount Piperacillin-Tazobactam 3 50 .375 gm In Dextrose/Water 1 50ml.bag @ 12.5 mls/hr IVPB Q8HR [facility] Rx#: [id number] Oral 250 1090 360 Output: Drainage 175 Right Upper Distal 175 Abdomen Urine 800 800 Other: # Voids 3 1 1 # Bowel Movements 1 - Exam General appearance: The patient is alert, oriented, in no acute distress. HET: Head is normocephalic and atraumatic. Pupils are equal and reactive. Oropharynx is clear without lesions. Neck: Supple without lymphadenopathy. Trachea midline. Heart: S1 S2. Regular rate and rhythm. Lungs: No crackles or wheezes are heard. Abdomen: Soft, right abdominal wall percutaneous drain with serosanguineous purulent drainage with minimal tenderness. No erythema or induration or warmth appreciated. Nondistended with bowel sounds. No peritoneal signs. No palpable organomegaly or masses. Extremities: Normal skin color and turgor. No cyanosis, rash, ulceration, clubbing, or edema. Radial and pedal pulses are 2/4 bilaterally. Neurological: No focal deficits. Strength and sensation are grossly intact. - Labs CBC & Chem 7: 02/01/17 06:45 02/01/17 06:45 Labs: Abnormal Lab Results - Last 24 Hours (Table) 02/02/17 02/02/17 Range/Units 06:56 06:56 ESR 91 H (0-15) mm/hr Prealbumin 16 L (18-36) mg/dL Microbiology - Last 24 Hours (Table) 01/31/17 09:57 Blood Culture - Preliminary Blood No Growth after 24 hours Assessment and Plan (1) Liver abscess Narrative/Plan: Status post percutaneous drainage Status: Acute (2) Abdominal pain Status: Acute (3) Crohns disease Status: Acute Plan: 1. IV antibiotics. 2. Diet as tolerated. Hold next dose of Remicade. RTO 03/02 for reevaluation. Will sign off. Assessment and plan a care discussed with Dr. You
--- NOTE | 2017-02-02 13:05 | P.PN ---
Subjective Principal diagnosis: Hepatic abscess Patient is his abdominal discomfort is improved. He is tolerating his regular diet. Drain is still purulent in nature. Objective - Vital Signs Vital signs: Vital Signs Temp 98.4 F 02/02/17 08:14 Pulse 90 02/02/17 08:14 Resp 18 02/02/17 08:14 BP 152/85 02/02/17 08:14 Pulse Ox 93 L 02/02/17 08:14 Intake & Output 02/01/17 02/02/17 02/02/17 18:59 06:59 18:59 Intake Total 250 1140 360 Output Total 800 175 800 Balance -550 965 -440 Weight 129.274 kg 129.274 kg Intake: Intake, IV Titration 50 Amount Piperacillin-Tazobactam 3 50 .375 gm In Dextrose/Water 1 50ml.bag @ 12.5 mls/hr IVPB Q8HR [facility] Rx#: [id number] Oral 250 1090 360 Output: Drainage 175 Right Upper Distal 175 Abdomen Urine 800 800 Other: # Voids 3 1 1 # Bowel Movements 1 - Exam Abdomen: Soft, mild right upper quadrant tenderness, no rebound or guarding - Labs CBC & Chem 7: 02/01/17 06:45 02/01/17 06:45 Labs: Abnormal Lab Results - Last 24 Hours (Table) 02/02/17 02/02/17 Range/Units 06:56 06:56 ESR 91 H (0-15) mm/hr Prealbumin 16 L (18-36) mg/dL Microbiology - Last 24 Hours (Table) 01/31/17 09:57 Blood Culture - Preliminary Blood No Growth after 48 hours Assessment and Plan (1) Liver abscess Narrative/Plan: Continue antibiotic per infectious disease. No surgical intervention planned at this time. We'll sign off at this point. Please contact if needed. Status: Acute
--- NOTE | 2017-02-02 21:36 | P.PN ---
Subjective Principal diagnosis: Hepatic abscess This is a 46-year-old male with past medical history significant for Crohn's disease on Remicade. He gives history that he has had 3 previous episodes of abscess formation but has been been pretty stable until July of this year. He states he has had quite a few flareups of since July and has been on antibiotics with Cipro or Levaquin and prednisone. He states he took his last dose of prednisone 3 days ago and he took Levaquin on Monday. Patient states he developed abdominal pain for 3 days on the right upper quadrant which continued to worsen. He denies having any fever or chills. He did not have a bowel movement prior to arrival for 3 days but he states he did have a bowel movement 4 AM today that was dark but no blood in it was not watery. He presented to [facility] emergency center on January 31. CAT scan of the abdomen and pelvis revealed multi septated exophytic hepatic abscess with extension to the undersurface of the right lateral abdominal wall. Associated abdominal wall thickening and possible early intramuscular abscess formation. Chronic changes of Crohn's disease but no active Crohn's disease suspected at this time. His white count was at 13.5 which is improved to 9. Patient also was found to have acute kidney injury with BUN of 30 and creatinine 1.56 which is improving. Patient was started on Zosyn and admitted to the [facility] floor. He subsequently underwent a CAT scan guided hepatic abscess drainage tube insertion with initially 100 mL of purulent material was aspirated. Cytology is pending. Gram stain showed many polymorphonuclear leukocytes and many gram-positive cocci and culture is in progress. The patient is on a soft diet and tolerating this with no nausea or vomiting. He's continues to have pressure in the right upper quadrant which is improved. Patient is definitely feeling better today. He was able to eat 3 meals but then developed some significant abdominal distention there is now improving after some pain medication. He did not develop nausea or emesis. Pain is improved this evening. Denies further high-grade fevers, chills or rigors. Objective - Vital Signs Vital signs: Vital Signs Temp 98.7 F 02/02/17 19:31 Pulse 76 02/02/17 19:31 Resp 16 02/02/17 20:19 BP 145/83 02/02/17 19:31 Pulse Ox 92 L 02/02/17 19:31 Intake & Output 02/02/17 02/02/17 02/03/17 06:59 18:59 06:59 Intake Total 1140 1130 Output Total 175 1600 Balance 965 -470 Weight 129.274 kg Intake: Intake, IV Titration 50 50 Amount Piperacillin-Tazobactam 3 50 50 .375 gm In Dextrose/Water 1 50ml.bag @ 12.5 mls/hr IVPB Q8HR [facility] Rx#: [id number] Oral 1090 1080 Output: Drainage 175 Right Upper Distal 175 Abdomen Urine 1600 Other: Voiding Method Toilet # Voids 1 1 1 # Bowel Movements 1 - Exam Gen: This is a 46-year-old obese male. He is in bed and appears to be comfortable. No acute distress is noted. HEENT: Head is atraumatic, normocephalic. Pupils equal, round. Sclerae is anicteric. Conjunctiva pink. Mucous members of the mouth are moist. No thrush noted. Dentition in good order.. NECK: Supple. No JVD. No lymphadenopathy. No thyromegaly. LUNGS: Clear to auscultation. No wheezes or rhonchi. No intercostal retractions. HEART: Regular rate and rhythm. No murmur. ABDOMEN: Soft. Bowel sounds are present. No masses. Tenderness to the right upper quadrant and right lateral abdomen. No significant bruising. The drain is in place draining the some large amount of the bilious thick material EXTREMITIES: No pedal edema. No calf tenderness. Dorsalis pedis +2 bilaterally. NEUROLOGICAL: Patient is awake, alert and oriented x3 - Labs CBC & Chem 7: 02/01/17 06:45 02/01/17 06:45 Labs: Abnormal Lab Results - Last 24 Hours (Table) 02/02/17 02/02/17 Range/Units 06:56 06:56 ESR 91 H (0-15) mm/hr Prealbumin 16 L (18-36) mg/dL Microbiology - Last 24 Hours (Table) 01/31/17 15:40 Gram Stain - Preliminary Aspirate Body Fluid Culture - Preliminary Alpha Hemolytic Streptococcus 01/31/17 09:57 Blood Culture - Preliminary Blood No Growth after 48 hours Laboratory Results WBC 9.1 k/uL (3.8-10.6) 02/01/17 06:45 RBC 4.14 m/uL (4.30-5.90) L 02/01/17 06:45 Hgb 12.3 gm/dL (13.0-17.5) L D 02/01/17 06:45 Hct 38.8 % (39.0-53.0) L 02/01/17 06:45 MCV 93.9 fL (80.0-100.0) 02/01/17 06:45 MCH 29.7 pg (25.0-35.0) 02/01/17 06:45 MCHC 31.6 g/dL (31.0-37.0) 02/01/17 06:45 RDW 15.3 % (11.5-15.5) 02/01/17 06:45 Plt Count 277 k/uL (150-450) 02/01/17 06:45 Neutrophils % 75 % 02/01/17 06:45 Lymphocytes % 11 % 02/01/17 06:45 Monocytes % 10 % 02/01/17 06:45 Eosinophils % 0 % 02/01/17 06:45 Basophils % 0 % 02/01/17 06:45 Neutrophils # 6.9 k/uL (1.3-7.7) 02/01/17 06:45 Lymphocytes # 1.0 k/uL (1.0-4.8) 02/01/17 06:45 Monocytes # 1.0 k/uL (0-1.0) 02/01/17 06:45 Eosinophils # 0.0 k/uL (0-0.7) 02/01/17 06:45 Basophils # 0.0 k/uL (0-0.2) 02/01/17 06:45 ESR 91 mm/hr (0-15) H 02/02/17 06:56 PT 13.1 sec (9.0-12.0) H 01/31/17 09:24 INR 1.3 (<1.2) H 01/31/17 09:24 Sodium 139 mmol/L (137-145) 02/01/17 06:45 Potassium 4.0 mmol/L (3.5-5.1) 02/01/17 06:45 Chloride 100 mmol/L (98-107) 02/01/17 06:45 Carbon Dioxide 27 mmol/L (22-30) 02/01/17 06:45 Anion Gap 12 mmol/L 02/01/17 06:45 BUN 31 mg/dL (9-20) H 02/01/17 06:45 Creatinine 1.14 mg/dL (0.66-1.25) 02/01/17 06:45 Est GFR (MDRD) Af Amer >60 (>60 ml/min/1.73 sqM) 02/01/17 06:45 Est GFR (MDRD) Non-Af >60 (>60 ml/min/1.73 sqM) 02/01/17 06:45 Glucose 105 mg/dL (74-99) H 02/01/17 06:45 Plasma Lactic Acid [place] 1.5 mmol/L (0.7-2.0) 01/31/17 09:57 Calcium 9.3 mg/dL (8.4-10.2) 02/01/17 06:45 Total Bilirubin 0.6 mg/dL (0.2-1.3) 02/01/17 06:45 AST 13 U/L (17-59) L 02/01/17 06:45 ALT 36 U/L (21-72) 02/01/17 06:45 Alkaline Phosphatase 49 U/L (38-126) 02/01/17 06:45 Total Protein 6.5 g/dL (6.3-8.2) 02/01/17 06:45 Albumin 3.3 g/dL (3.5-5.0) L 02/01/17 06:45 Prealbumin 16 mg/dL (18-36) L 02/02/17 06:56 Amylase 43 U/L (30-110) 01/31/17 09:24 Lipase 59 U/L (23-300) 01/31/17 09:24 Urine Color Yellow 01/31/17 10:17 Urine Appearance Clear (Clear) 01/31/17 10:17 Urine pH 6.0 (5.0-8.0) 01/31/17 10:17 Ur Specific [place] >1.050 (1.001-1.035) H 01/31/17 10:17 Urine Protein 1+ (Negative) H 01/31/17 10:17 Urine Glucose (UA) Negative (Negative) 01/31/17 10:17 Urine Ketones Negative (Negative) 01/31/17 10:17 Urine Blood Trace (Negative) H 01/31/17 10:17 Urine Nitrite Negative (Negative) 01/31/17 10:17 Urine Bilirubin Negative (Negative) 01/31/17 10:17 Urine Urobilinogen <2.0 mg/dL (<2.0) 01/31/17 10:17 Ur Leukocyte Esterase Negative (Negative) 01/31/17 10:17 Urine RBC 3 /hpf (0-5) 01/31/17 10:17 Urine WBC <1 /hpf (0-5) 01/31/17 10:17 Ur Squamous Epith Cells <1 /hpf (0-4) 01/31/17 10:17 Urine Mucus Rare /hpf (None) H 01/31/17 10:17 Microbiology 01/31/17 15:40 Aspirate Gram Stain - Preliminary 01/31/17 15:40 Aspirate Body Fluid Culture - Preliminary Alpha Hemolytic Streptococcus 01/31/17 09:57 Blood Blood Culture - Preliminary No Growth after 48 hours 01/31/17 15:40 Aspirate Anaerobic Culture - Preliminary Assessment and Plan (1) Liver abscess Narrative/Plan: This pleasant 46-year-old male has a long-standing history of Crohn's disease who in 2002 developed a hepatic abscess. It is noted the patient was feeling poorly for a few days. He was having difficulties with his Crohn's disease. He increase his level of immunosuppression with his prednisone. And then he developed the significant increasing abdominal pain. His coworkers related that he looked ill and pale. As the pain increased he finally presented to the emergency center and as noted was found evidence of the significant hepatic abscess. He is now status post percutaneous drainage and likely has a streptococcal infection. The pathophysiology of hepatic abscesses discussed with the patient in that it routinely is related to bowel disease and immunosuppression. If possible moxifloxacin can be utilized at the time of his discharge however likely will need intravenous antibiotic therapy. Currently responding well to Zosyn. Blood cultures are negative so far. Going supportive care. Pain management is adequate. Prealbumin is low at 16 and will need significant protein supplementation in his recovery. Cytosis is improving with constant and 9.1. With hydration his hemoglobin is dropped to 12.3. No evidence of active bleeding. With hydration his elevated creatinine has improved to 1.14 Once cultures are available hopefully in the morning we'll then be able to determine if PICC line as needed in the outpatient intravenous antibiotic therapy, would likely be with Invanz Status: Acute (2) Leukocytosis Status: Acute
[2017-02-03] MEDS: PIPERACILLIN-TAZOBACTAM 3.375 GM in DEXTROSE/WATER 1 50ML.BAG IVPB SCH ×3 (07:55→23:25)
[2017-02-03] MEDS: HYDROmorphone 1 MG/ML 1 ML SYRINGE IV PRN ×4 (08:41→23:24)
[2017-02-03] MEDS: MULTIVITAMINS, THERA 1 EACH TAB PO SCH (12:31)
[2017-02-03] MEDS ORDERED: AMLODIPINE BESYLATE PO SCH (17:30)
[2017-02-03] MEDS ORDERED: [UNRECOGNIZED DRUG - OTHER] PO SCH (17:30)
[2017-02-03] MEDS ORDERED: BENAZEPRIL PO SCH (17:30)
[2017-02-03] MEDS: LISINOPRIL 20 MG TAB PO SCH (18:18)
[2017-02-03] MEDS: amLODIPine 5 MG TAB PO SCH (18:18)
--- NOTE | 2017-02-03 22:55 | P.PN ---
Subjective Principal diagnosis: Hepatic abscess This is a 46-year-old male with past medical history significant for Crohn's disease on Remicade. He gives history that he has had 3 previous episodes of abscess formation but has been been pretty stable until July of this year. He states he has had quite a few flareups of since July and has been on antibiotics with Cipro or Levaquin and prednisone. He states he took his last dose of prednisone 3 days ago and he took Levaquin on Monday. Patient states he developed abdominal pain for 3 days on the right upper quadrant which continued to worsen. He denies having any fever or chills. He did not have a bowel movement prior to arrival for 3 days but he states he did have a bowel movement 4 AM today that was dark but no blood in it was not watery. He presented to [facility] emergency center on January 31. CAT scan of the abdomen and pelvis revealed multi septated exophytic hepatic abscess with extension to the undersurface of the right lateral abdominal wall. Associated abdominal wall thickening and possible early intramuscular abscess formation. Chronic changes of Crohn's disease but no active Crohn's disease suspected at this time. His white count was at 13.5 which is improved to 9. Patient also was found to have acute kidney injury with BUN of 30 and creatinine 1.56 which is improving. Patient was started on Zosyn and admitted to the [facility] floor. He subsequently underwent a CAT scan guided hepatic abscess drainage tube insertion with initially 100 mL of purulent material was aspirated. Cytology is pending. Gram stain showed many polymorphonuclear leukocytes and many gram-positive cocci and culture is in progress. The patient is on a soft diet and tolerating this with no nausea or vomiting. He's continues to have pressure in the right upper quadrant which is improved. Patient is definitely feeling better today. He was able to eat meals with less abdominal distention today. He did not develop nausea or emesis. Pain is improved this evening. Denies further high-grade fevers, chills or rigors. Objective - Vital Signs Vital signs: Vital Signs Temp 96.1 F L 02/03/17 19:42 Pulse 72 02/03/17 19:42 Resp 16 02/03/17 19:42 BP 138/79 02/03/17 19:42 Pulse Ox 93 L 02/03/17 19:42 Intake & Output 02/03/17 02/03/17 02/04/17 06:59 18:59 06:59 Intake Total 620 Output Total 65 70 Balance -65 550 Intake: Intake, IV Titration 100 Amount Piperacillin-Tazobactam 3 100 .375 gm In Dextrose/Water 1 50ml.bag @ 12.5 mls/hr IVPB Q8HR [facility] Rx#: [id number] Oral 520 Output: Drainage 65 70 Right Upper Distal 65 70 Abdomen Other: Voiding Method Toilet # Voids 1 1 - Exam Gen: This is a 46-year-old obese male. He is in bed and appears to be comfortable. No acute distress is noted. HEENT: Head is atraumatic, normocephalic. Pupils equal, round. Sclerae is anicteric. Conjunctiva pink. Mucous members of the mouth are moist. No thrush noted. Dentition in good order.. NECK: Supple. No JVD. No lymphadenopathy. No thyromegaly. LUNGS: Clear to auscultation. No wheezes or rhonchi. No intercostal retractions. HEART: Regular rate and rhythm. No murmur. ABDOMEN: Soft. Bowel sounds are present. No masses. Tenderness to the right upper quadrant and right lateral abdomen. No significant bruising. The drain is in place draining the some large amount of the bilious thick material EXTREMITIES: No pedal edema. No calf tenderness. Dorsalis pedis +2 bilaterally. NEUROLOGICAL: Patient is awake, alert and oriented x3 - Labs CBC & Chem 7: 02/01/17 06:45 02/01/17 06:45 Labs: Microbiology - Last 24 Hours (Table) 01/31/17 15:40 Gram Stain - Final Aspirate Body Fluid Culture - Final Streptococcus viridans group 01/31/17 09:57 Blood Culture - Preliminary Blood No Growth after 72 hours 01/31/17 15:40 Anaerobic Culture - Preliminary Aspirate Laboratory Results WBC 9.1 k/uL (3.8-10.6) 02/01/17 06:45 RBC 4.14 m/uL (4.30-5.90) L 02/01/17 06:45 Hgb 12.3 gm/dL (13.0-17.5) L D 02/01/17 06:45 Hct 38.8 % (39.0-53.0) L 02/01/17 06:45 MCV 93.9 fL (80.0-100.0) 02/01/17 06:45 MCH 29.7 pg (25.0-35.0) 02/01/17 06:45 MCHC 31.6 g/dL (31.0-37.0) 02/01/17 06:45 RDW 15.3 % (11.5-15.5) 02/01/17 06:45 Plt Count 277 k/uL (150-450) 02/01/17 06:45 Neutrophils % 75 % 02/01/17 06:45 Lymphocytes % 11 % 02/01/17 06:45 Monocytes % 10 % 02/01/17 06:45 Eosinophils % 0 % 02/01/17 06:45 Basophils % 0 % 02/01/17 06:45 Neutrophils # 6.9 k/uL (1.3-7.7) 02/01/17 06:45 Lymphocytes # 1.0 k/uL (1.0-4.8) 02/01/17 06:45 Monocytes # 1.0 k/uL (0-1.0) 02/01/17 06:45 Eosinophils # 0.0 k/uL (0-0.7) 02/01/17 06:45 Basophils # 0.0 k/uL (0-0.2) 02/01/17 06:45 ESR 91 mm/hr (0-15) H 02/02/17 06:56 PT 13.1 sec (9.0-12.0) H 01/31/17 09:24 INR 1.3 (<1.2) H 01/31/17 09:24 Sodium 139 mmol/L (137-145) 02/01/17 06:45 Potassium 4.0 mmol/L (3.5-5.1) 02/01/17 06:45 Chloride 100 mmol/L (98-107) 02/01/17 06:45 Carbon Dioxide 27 mmol/L (22-30) 02/01/17 06:45 Anion Gap 12 mmol/L 02/01/17 06:45 BUN 31 mg/dL (9-20) H 02/01/17 06:45 Creatinine 1.14 mg/dL (0.66-1.25) 02/01/17 06:45 Est GFR (MDRD) Af Amer >60 (>60 ml/min/1.73 sqM) 02/01/17 06:45 Est GFR (MDRD) Non-Af >60 (>60 ml/min/1.73 sqM) 02/01/17 06:45 Glucose 105 mg/dL (74-99) H 02/01/17 06:45 Plasma Lactic Acid [place] 1.5 mmol/L (0.7-2.0) 01/31/17 09:57 Calcium 9.3 mg/dL (8.4-10.2) 02/01/17 06:45 Total Bilirubin 0.6 mg/dL (0.2-1.3) 02/01/17 06:45 AST 13 U/L (17-59) L 02/01/17 06:45 ALT 36 U/L (21-72) 02/01/17 06:45 Alkaline Phosphatase 49 U/L (38-126) 02/01/17 06:45 Total Protein 6.5 g/dL (6.3-8.2) 02/01/17 06:45 Albumin 3.3 g/dL (3.5-5.0) L 02/01/17 06:45 Prealbumin 16 mg/dL (18-36) L 02/02/17 06:56 Amylase 43 U/L (30-110) 01/31/17 09:24 Lipase 59 U/L (23-300) 01/31/17 09:24 Urine Color Yellow 01/31/17 10:17 Urine Appearance Clear (Clear) 01/31/17 10:17 Urine pH 6.0 (5.0-8.0) 01/31/17 10:17 Ur Specific [place] >1.050 (1.001-1.035) H 01/31/17 10:17 Urine Protein 1+ (Negative) H 01/31/17 10:17 Urine Glucose (UA) Negative (Negative) 01/31/17 10:17 Urine Ketones Negative (Negative) 01/31/17 10:17 Urine Blood Trace (Negative) H 01/31/17 10:17 Urine Nitrite Negative (Negative) 01/31/17 10:17 Urine Bilirubin Negative (Negative) 01/31/17 10:17 Urine Urobilinogen <2.0 mg/dL (<2.0) 01/31/17 10:17 Ur Leukocyte Esterase Negative (Negative) 01/31/17 10:17 Urine RBC 3 /hpf (0-5) 01/31/17 10:17 Urine WBC <1 /hpf (0-5) 01/31/17 10:17 Ur Squamous Epith Cells <1 /hpf (0-4) 01/31/17 10:17 Urine Mucus Rare /hpf (None) H 01/31/17 10:17 Microbiology 01/31/17 15:40 Aspirate Gram Stain - Final 01/31/17 15:40 Aspirate Body Fluid Culture - Final Streptococcus viridans group 01/31/17 09:57 Blood Blood Culture - Preliminary No Growth after 72 hours 01/31/17 15:40 Aspirate Anaerobic Culture - Preliminary Assessment and Plan (1) Liver abscess Narrative/Plan: This pleasant 46-year-old male has a long-standing history of Crohn's disease who in 2002 developed a hepatic abscess. It is noted the patient was feeling poorly for a few days. He was having difficulties with his Crohn's disease. He increase his level of immunosuppression with his prednisone. And then he developed the significant increasing abdominal pain. His coworkers related that he looked ill and pale. As the pain increased he finally presented to the emergency center and as noted was found evidence of the significant hepatic abscess. He is now status post percutaneous drainage and likely has a streptococcal infection. The pathophysiology of hepatic abscesses discussed with the patient in that it routinely is related to bowel disease and immunosuppression. If possible moxifloxacin can be utilized at the time of his discharge however likely will need intravenous antibiotic therapy. Currently responding well to Zosyn. Blood cultures are negative so far. Going supportive care. Pain management is adequate. Prealbumin is low at 16 and will need significant protein supplementation in his recovery. Cytosis is improving with constant and 9.1. With hydration his hemoglobin is dropped to 12.3. No evidence of active bleeding. With hydration his elevated creatinine has improved to 1.14 Cultures are still pending. However with the patient's large abscess we'll plan on PICC line and outpatient intravenous antibiotic therapy, would likely be with Invanz this is started and is being monitored. We'll request PICC line Monday am Status: Acute (2) Leukocytosis Status: Acute
[2017-02-03] MEDS: HEPARIN SODIUM,PORCINE 5,000 UNIT/ML 1 ML VIAL SQ SCH (23:24)
--- NOTE | 2017-02-03 23:51 | P.PN ---
Subjective Mr. Alejo is a 46-year-old male with known history of Crohn's disease and hypertension. Came to the ER with complaints of increased abdominal pain for the past 3 days. Patient says that the patient was having a right upper quadrant and flank pain, which has been getting worse and started as a discomfort. Patient does have history of Crohn's disease and has been taking Remicade and the patient had exacerbation and was using steroids as well. Currently, the patient denied any abdominal pain. Patient has been constipated for the last 3 days. Otherwise, patient came to the ER for further evaluation and the patient was also having fevers and chills at home. Denied any chest pain or short of breath. No nausea or vomiting. No numbness or tingling. Patient had CT of the abdomen and pelvis. It showed multiseptated exophytic hepatic abscess with extension to the undersurface of the right lateral abdominal wall. Patient was seen by General Surgery and recommended CT guided drainage and patient underwent CT guided drainage with pigtail catheter placement draining serosanguineous discharge now. The patient says that abdominal discomfort is much improved now. On 02/02/2017 - patient denies having any new complaints. Patient states his abdominal pain has improved a lot. 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 blurring of vision slurring of speech Objective - Vital Signs Vital signs: Vital Signs Vital Signs Temp 98.7 F 02/02/17 19:31 Pulse 76 02/02/17 19:31 Resp 16 02/02/17 20:19 BP 145/83 02/02/17 19:31 Pulse Ox 92 L 02/02/17 19:31 Intake & Output 02/02/17 02/02/17 02/03/17 06:59 18:59 06:59 Intake Total 1140 1130 Output Total 175 1600 Balance 965 -470 Weight 129.274 kg Intake: Intake, IV Titration 50 50 Amount Piperacillin-Tazobactam 3 50 50 .375 gm In Dextrose/Water 1 50ml.bag @ 12.5 mls/hr IVPB Q8HR [facility] Rx#: [id number] Oral 1090 1080 Output: Drainage 175 Right Upper Distal 175 Abdomen Urine 1600 Other: Voiding Method Toilet # Voids 1 1 1 # Bowel Movements 1 - Exam HEENT: Atraumatic, normocephalic. Neck is supple. No JVD. CVS EXAM: S1 and S2 heard. No murmurs, no gallop, no rub. LUNGS: Bilateral air entry is present. No wheezing, no crackles. Nonlabored breathing. ABDOMEN: Soft, nontender. Bowel sounds are present. Hepatic drain in place with some serosanguineous discharge. LATHE OPERATOR: Awake, alert, oriented x3. No focal deficit. EXTREMITIES: No edema. Pulses felt bilaterally. No clubbing or cyanosis. PSYCHIATRIC: Cooperative - Labs CBC & Chem 7: 02/01/17 06:45 02/01/17 06:45 Labs: Microbiology - Last 24 Hours (Table) 01/31/17 15:40 Gram Stain - Final Aspirate Body Fluid Culture - Final Streptococcus viridans group 01/31/17 09:57 Blood Culture - Preliminary Blood No Growth after 72 hours 01/31/17 15:40 Anaerobic Culture - Preliminary Aspirate Assessment and Plan Plan: 1. Liver abscess, status post CT guided drainage. 2. History of Croh. n's disease with recent exacerbation and chronically on Remicade and steroids on and off. 3. Previous history of liver abscess 10 years ago. 4. Hypertension. 5. Hyperlipidemia. 6. Sepsis secondary to liver abscess. Patient did have tachycardia and leukocytosis on admission. 7. Morbid obesity with body mass index of 36.6. 8. Acute kidney injury, likely prerenal. 9. Mild hypercalcemia. DISCUSSION AND PLAN: Patient will be continued on IV fluids, continue with antibiotics in the form of Zosyn and CT guided drainage was done. General Surgery is following the patient. Further recommendation based on the clinical course. Patient symptomatically improved after drainage.
--- NOTE | 2017-02-04 02:21 | P.PN ---
Subjective Principal diagnosis: Liver absess Mr. Alejo is a 46-year-old male with known history of Crohn's disease and hypertension. Came to the ER with complaints of increased abdominal pain for the past 3 days. Patient says that the patient was having a right upper quadrant and flank pain, which has been getting worse and started as a discomfort. Patient does have history of Crohn's disease and has been taking Remicade and the patient had exacerbation and was using steroids as well. Currently, the patient denied any abdominal pain. Patient has been constipated for the last 3 days. Otherwise, patient came to the ER for further evaluation and the patient was also having fevers and chills at home. Denied any chest pain or short of breath. No nausea or vomiting. No numbness or tingling. Patient had CT of the abdomen and pelvis. It showed multiseptated exophytic hepatic abscess with extension to the undersurface of the right lateral abdominal wall. Patient was seen by General Surgery and recommended CT guided drainage and patient underwent CT guided drainage with pigtail catheter placement draining serosanguineous discharge now. The patient says that abdominal discomfort is much improved now. On 02/02/2017 - patient denies having any new complaints. Patient states his abdominal pain has improved a lot. on 02/03/17- Pt. c/o soarness at the drain site. still daining serosaguous. restarte don BP medications. 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 blurring of vision slurring of speech Objective - Vital Signs Vital signs: Vital Signs Temp 96.1 F L 02/03/17 19:42 Pulse 72 02/03/17 19:42 Resp 16 02/03/17 19:42 BP 138/79 02/03/17 19:42 Pulse Ox 93 L 02/03/17 19:42 Intake & Output 02/03/17 02/03/17 02/04/17 06:59 18:59 06:59 Intake Total 620 Output Total 65 70 Balance -65 550 Intake: Intake, IV Titration 100 Amount Piperacillin-Tazobactam 3 100 .375 gm In Dextrose/Water 1 50ml.bag @ 12.5 mls/hr IVPB Q8HR [facility] Rx#: [id number] Oral 520 Output: Drainage 65 70 Right Upper Distal 65 70 Abdomen Other: Voiding Method Toilet # Voids 1 1 - Exam HEENT: Atraumatic, normocephalic. Neck is supple. No JVD. CVS EXAM: S1 and S2 heard. No murmurs, no gallop, no rub. LUNGS: Bilateral air entry is present. No wheezing, no crackles. Nonlabored breathing. ABDOMEN: Soft, nontender. Bowel sounds are present. Hepatic drain in place with some serosanguineous discharge. 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 No focal deficit. EXTREMITIES: No edema. Pulses felt bilaterally. No clubbing or cyanosis. PSYCHIATRIC: Cooperative - Labs CBC & Chem 7: 02/01/17 06:45 02/01/17 06:45 Labs: Microbiology - Last 24 Hours (Table) 01/31/17 15:40 Gram Stain - Final Aspirate Body Fluid Culture - Final Streptococcus viridans group 01/31/17 09:57 Blood Culture - Preliminary Blood No Growth after 72 hours 01/31/17 15:40 Anaerobic Culture - Preliminary Aspirate Assessment and Plan Plan: 1. Liver abscess, status post CT guided drainage. 2. History of Croh. n's disease with recent exacerbation and chronically on Remicade and steroids on and off. 3. Previous history of liver abscess 10 years ago. 4. Hypertension. restaretd on amlodipine/benazapril 5. Hyperlipidemia. 6. Sepsis secondary to liver abscess. Patient did have tachycardia and leukocytosis on admission. 7. Morbid obesity with body mass index of 36.6. 8. Acute kidney injury, likely prerenal. 9. Mild hypercalcemia. DISCUSSION AND PLAN: Patient will be continued on IV fluids, continue with antibiotics in the form of Zosyn and CT guided drainage was done. on Pigtail cath. General Surgery and ID is following the patient. Possible IV anx at home, will follow cx reports Further recommendation based on the clinical course. Patient symptomatically improved after drainage.
[2017-02-04] MEDS: HYDROmorphone 1 MG/ML 1 ML SYRINGE IV PRN ×3 (08:08→20:31)
[2017-02-04] MEDS: PIPERACILLIN-TAZOBACTAM 3.375 GM in DEXTROSE/WATER 1 50ML.BAG IVPB SCH ×2 (08:10→15:25)
[2017-02-04] MEDS: HEPARIN SODIUM,PORCINE 5,000 UNIT/ML 1 ML VIAL SQ SCH ×2 (08:10→15:24)
[2017-02-04] MEDS: MULTIVITAMINS, THERA 1 EACH TAB PO SCH (08:11)
[2017-02-04] MEDS: amLODIPine 5 MG TAB PO SCH (08:11)
[2017-02-04] MEDS: LISINOPRIL 20 MG TAB PO SCH (08:11)
--- NOTE | 2017-02-04 19:35 | P.PN ---
Subjective Mr. Alejo is a 46-year-old male with known history of Crohn's disease and hypertension. Came to the ER with complaints of increased abdominal pain for the past 3 days. Patient says that the patient was having a right upper quadrant and flank pain, which has been getting worse and started as a discomfort. Patient does have history of Crohn's disease and has been taking Remicade and the patient had exacerbation and was using steroids as well. Currently, the patient denied any abdominal pain. Patient has been constipated for the last 3 days. Otherwise, patient came to the ER for further evaluation and the patient was also having fevers and chills at home. Denied any chest pain or short of breath. No nausea or vomiting. No numbness or tingling. Patient had CT of the abdomen and pelvis. It showed multiseptated exophytic hepatic abscess with extension to the undersurface of the right lateral abdominal wall. Patient was seen by General Surgery and recommended CT guided drainage and patient underwent CT guided drainage with pigtail catheter placement draining serosanguineous discharge now. The patient says that abdominal discomfort is much improved now. On 02/02/2017 - patient denies having any new complaints. Patient states his abdominal pain has improved a lot. on 02/03/17- Pt. c/o soarness at the drain site. still daining serosaguous. restarte don BP medications. 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 Neck is supple. No JVD. CVS EXAM: S1 and S2 heard. No murmurs, no gallop, no rub. LUNGS: Bilateral air entry is present. No wheezing, no crackles. Nonlabored breathing. ABDOMEN: Soft, nontender. Bowel sounds are present. Hepatic drain in place with some serosanguineous discharge. DRAMA TEACHER: Awake, alert, oriented x3. No focal deficit. EXTREMITIES: No edema. Pulses felt bilaterally. No clubbing or cyanosis. PSYCHIATRIC: Cooperative Assessment and Plan Plan: 1. Liver abscess, status post CT guided drainage. 2. History of Croh. n's disease with recent exacerbation and chronically on Remicade and steroids on and off. 3. Previous history of liver abscess 10 years ago. 4. Hypertension. restaretd on amlodipine/benazapril 5. Hyperlipidemia. 6. Sepsis secondary to liver abscess. Patient did have tachycardia and leukocytosis on admission. 7. Morbid obesity with body mass index of 36.6. 8. Acute kidney injury, likely prerenal. 9. Mild hypercalcemia. DISCUSSION AND PLAN: Patient will be continued on IV fluids, continue with antibiotics in the form of Zosyn and CT guided drainage was done. on Pigtail cath. PICC and care home abx likely dc with home care and abx on monday. Objective - Vital Signs Vital signs: Vital Signs Temp 98.0 F 02/04/17 15:34 Pulse 110 H 02/04/17 15:34 Resp 16 02/04/17 15:34 BP 137/84 02/04/17 15:34 Pulse Ox 96 02/04/17 15:34 Intake & Output 02/04/17 02/04/17 02/05/17 06:59 18:59 06:59 Output Total 50 40 Balance -50 -40 Output: Drainage 50 40 Right Upper Distal 50 40 Abdomen Other: Voiding Method Toilet # Voids 1 3 - Labs CBC & Chem 7: 02/01/17 06:45 02/01/17 06:45 Labs: Microbiology - Last 24 Hours (Table) 01/31/17 09:57 Blood Culture - Preliminary Blood No Growth after 96 hours 01/31/17 15:40 Gram Stain - Final Aspirate Body Fluid Culture - Final Streptococcus viridans group
[2017-02-05] MEDS: HYDROmorphone 1 MG/ML 1 ML SYRINGE IV PRN ×4 (00:39→20:44)
[2017-02-05] MEDS: HEPARIN SODIUM,PORCINE 5,000 UNIT/ML 1 ML VIAL SQ SCH ×3 (00:41→15:09)
[2017-02-05] MEDS: PIPERACILLIN-TAZOBACTAM 3.375 GM in DEXTROSE/WATER 1 50ML.BAG IVPB SCH ×3 (00:42→15:06)
[2017-02-05 07:16] LABS: Basophils # (A) 0.1 k/uL (0-0.2); Basophils % (A) 1 %; CH 29.8; CHCM 33.1; Eosinophils # (A) 0.1 k/uL (0-0.7); Eosinophils % (A) 2 %; HCT 41.4 % (39.0-53.0); HDW 2.72; HGB 13.8 gm/dL (13.0-17.5); Luc # (Auto) 0.13; Luc % (Auto) 2; Lymphocytes # (A) 1.2 k/uL (1.0-4.8); Lymphocytes % (A) 14 %; MCH 30.2 pg (25.0-35.0); MCHC 33.4 g/dL (31.0-37.0); MCV 90.5 fL (80.0-100.0); Mean Platelet Volume 6.4; Monocytes # (A) 0.5 k/uL (0-1.0); Monocytes % (A) 7 %; Neutrophils # (A) 6.3 k/uL (1.3-7.7); Neutrophils % (A) 75 %; RBC 4.57 m/uL (4.30-5.90); RDW 14.8 % (11.5-15.5); WBC 8.3 k/uL (3.8-10.6)
[2017-02-05 07:30] LABS: ALT 44 U/L (21-72); AST 20 U/L (17-59); Alkaline Phosphatase 54 U/L (38-126); Anion Gap 13 mmol/L; Blood Urea Nitrogen 9 mg/dL (9-20); Calcium 9.6 mg/dL (8.4-10.2); Carbon Dioxide 31 mmol/L (22-30); Chloride 98 mmol/L (98-107); Glucose 93 mg/dL (74-99); Non-African American GFR(MDRD) >60 (>60 ml/min/1.73 sqM); Sodium 142 mmol/L (137-145); Total Bilirubin 0.7 mg/dL (0.2-1.3); Total Protein 7.1 g/dL (6.3-8.2)
[2017-02-05 07:34] LABS: Potassium 3.7 mmol/L (3.5-5.1)
[2017-02-05] MEDS: amLODIPine 5 MG TAB PO SCH (08:45)
[2017-02-05] MEDS: LISINOPRIL 20 MG TAB PO SCH (08:45)
[2017-02-05] MEDS: MULTIVITAMINS, THERA 1 EACH TAB PO SCH (08:45)
--- NOTE | 2017-02-05 14:05 | P.PN ---
Subjective Mr. Alejo is a 46-year-old male with known history of Crohn's disease and hypertension. Came to the ER with complaints of increased abdominal pain for the past 3 days. Patient says that the patient was having a right upper quadrant and flank pain, which has been getting worse and started as a discomfort. Patient does have history of Crohn's disease and has been taking Remicade and the patient had exacerbation and was using steroids as well. Currently, the patient denied any abdominal pain. Patient has been constipated for the last 3 days. Otherwise, patient came to the ER for further evaluation and the patient was also having fevers and chills at home. Denied any chest pain or short of breath. No nausea or vomiting. No numbness or tingling. Patient had CT of the abdomen and pelvis. It showed multiseptated exophytic hepatic abscess with extension to the undersurface of the right lateral abdominal wall. Patient was seen by General Surgery and recommended CT guided drainage and patient underwent CT guided drainage with pigtail catheter placement draining serosanguineous discharge now. The patient says that abdominal discomfort is much improved now. On 02/02/2017 - patient denies having any new complaints. Patient states his abdominal pain has improved a lot. on 02/03/17- Pt. c/o soarness at the drain site. still daining serosaguous. restarte don BP medications. 02/04/17 No new overnight events pt states to be feeling better today No diarrhea, fevers, chills iare reported 2016 No new overnight events. 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 Neck is supple. No JVD. CVS EXAM: S1 and S2 heard. systolic murmur 2/6 LUNGS: Bilateral air entry is present. No wheezing, no crackles. Nonlabored breathing. ABDOMEN: Soft, nontender. Bowel sounds are present. Hepatic drain in place with some serosanguineous discharge. FEATURE WRITER: Awake, alert, oriented x3. No focal deficit. EXTREMITIES: No edema. Pulses felt bilaterally. No clubbing or cyanosis. PSYCHIATRIC: Cooperative Assessment and Plan Plan: 1. Liver abscess, status post CT guided drainage. 2. History of Croh. n's disease with recent exacerbation and chronically on Remicade and steroids on and off. 3. Previous history of liver abscess 10 years ago. 4. Hypertension. restaretd on amlodipine/benazapril 5. Hyperlipidemia. 6. Sepsis secondary to liver abscess. Patient did have tachycardia and leukocytosis on admission. 7. Morbid obesity with body mass index of 36.6. 8. Acute kidney injury, likely prerenal. 9. Mild hypercalcemia. DISCUSSION AND PLAN: Patient will be continued on IV fluids, continue with antibiotics in the form of Zosyn and CT guided drainage was done. on Pigtail cath. PICC and skilled nursing abx likely dc with home care and abx on monday. Objective - Vital Signs Vital signs: Vital Signs Temp 98.5 F 02/05/17 08:00 Pulse 97 02/05/17 08:00 Resp 18 02/05/17 08:00 BP 130/77 02/05/17 08:00 Pulse Ox 96 02/05/17 08:00 Intake & Output 02/04/17 02/05/17 02/05/17 18:59 06:59 18:59 Intake Total 1040 Output Total 40 1215 Balance -40 -175 Intake: Oral 1040 Output: Drainage 40 15 Right Upper Distal 40 15 Abdomen Urine 1200 Other: Voiding Method Toilet # Voids 3 - Labs CBC & Chem 7: 02/05/17 06:50 02/05/17 06:50 Labs: Abnormal Lab Results - Last 24 Hours (Table) 02/05/17 Range/Units 06:50 Carbon Dioxide 31 H (22-30) mmol/L Microbiology - Last 24 Hours (Table) 01/31/17 09:57 Blood Culture - Preliminary Blood No Growth after 120 hours 01/31/17 15:40 Anaerobic Culture - Final Aspirate
[2017-02-05 16:16] VITALS: RESP 16
[2017-02-06] MEDS: HEPARIN SODIUM,PORCINE 5,000 UNIT/ML 1 ML VIAL SQ SCH ×2 (00:36→07:46)
[2017-02-06] MEDS: PIPERACILLIN-TAZOBACTAM 3.375 GM in DEXTROSE/WATER 1 50ML.BAG IVPB SCH ×2 (00:36→07:46)
[2017-02-06] MEDS: amLODIPine 5 MG TAB PO SCH (07:47)
[2017-02-06] MEDS: LISINOPRIL 20 MG TAB PO SCH (07:47)
[2017-02-06] MEDS ORDERED: ERTAPENEM 1 GM in SODIUM CHLORIDE 0.9% 50 ML IVPB SCH (10:15)
[2017-02-06] MEDS ORDERED: LIDOCAINE 2% INJ 20 MG/ML SQ ONE (10:48)
[2017-02-06] MEDS: MULTIVITAMINS, THERA 1 EACH TAB PO SCH (11:55)
[2017-02-06] MEDS: HYDROmorphone 1 MG/ML 1 ML SYRINGE IV PRN (13:30)
[2017-02-06 13:58] VITALS: BP 119/67; PULSE 112; TEMP 98.8
--- NOTE | 2017-02-06 15:38 | IR ---
EXAMINATION TYPE: IR cvc insert >=5 years DATE OF EXAM: 02/06/2017 COMPARISON: NONE CLINICAL HISTORY: Infection Needs long-term intravenous access for antibiotics. PROCEDURE: After informed consent, the skin overlying the upper extremity vein was localized with ultrasound and noted to be compressible and patent. An ultrasound image was obtained and submitted on the patient' s chart. The overlying skin was prepped and draped and Lidocaine was used for local anesthesia. A s kin jumana was made with a scalpel. Access was gained to the vein under ultrasound guidance with a 21 gauge needle and a 0.018 inch wire was advanced. Access site was dilated with Peel-Away sheath and c atheter tailored to the appropriate length and advanced such that the distal tip is at the cavoatrial junction. Spot image was obtained verifying placement. Catheter was fixed to the skin with suture and a sterile dressing was placed following hemostasis. Catheter was aspirated and flushed with sali ne. Patient was discharged in stable condition without complication. Maximal barrier technique is ut ilized. Ultrasound image is documented on the chart. Ultrasound used with sterile technique. Fluoro time and fluoroscopic images submitted to document procedure: 0.3 minutes fluoroscopic guidanc e time, 143 intraoperative C-arm images IMPRESSION: STATUS POST ULTRASOUND AND FLUOROSCOPIC GUIDED PICC LINE PLACEMENT, READY FOR USE. THIS PROCEDURE WAS PERFORMED BY THE UNDERSIGNED.
--- NOTE | 2017-02-06 17:44 | P.DS ---
Providers Date of admission: 01/31/17 11:51 Attending physician: Cristina Villarreal Consults: 01/31/17 11:21 Consult Physician Stat Consulting Provider: Mlaachi Pearson Consult Reason/Comments: Liver abscess Do you want consulting provider notified?: Yes 01/31/17 16:32 Consult Physician Routine Consulting Provider: Yeyo Loyd Reason/Comments: liver abscess Do you want consulting provider notified?: Yes Primary care physician: Mitra [facility] Course: Mr. Alejo is a 46-year-old male with known history of Crohn's disease and hypertension. Came to the ER with complaints of increased abdominal pain for the past 3 days. Patient says that the patient was having a right upper quadrant and flank pain, which has been getting worse and started as a discomfort. Patient does have history of Crohn's disease and has been taking Remicade and the patient had exacerbation and was using steroids as well. Currently, the patient denied any abdominal pain. Patient has been constipated for the last 3 days. Otherwise, patient came to the ER for further evaluation and the patient was also having fevers and chills at home. Denied any chest pain or short of breath. No nausea or vomiting. No numbness or tingling. Patient had CT of the abdomen and pelvis. It showed multiseptated exophytic hepatic abscess with extension to the undersurface of the right lateral abdominal wall. Patient was seen by General Surgery and recommended CT guided drainage and patient underwent CT guided drainage with pigtail catheter placement draining serosanguineous discharge now. The patient says that abdominal discomfort is much improved now. On 02/02/2017 - patient denies having any new complaints. Patient states his abdominal pain has improved a lot. on 02/03/17- Pt. c/o soarness at the drain site. still daining serosaguous. restarte don BP medications. 02/04/17 No new overnight events pt states to be feeling better today No diarrhea, fevers, chills iare reported 2016 No new overnight events. Patient states that he's feels significantly better today No diarrhea fevers chills nausea vomiting is reported Review of systems Cardiac - no chest pain palpitations Respiratory - no cough no difficulty in breathing - no dysuria or hematuria CHEF SAUCIER - denies having any headaches blurring of vision slurring of speech - Exam HEENT: Atraumatic, normocephalic. Neck is supple. No JVD. CVS EXAM: S1 and S2 heard. systolic murmur 2/6 LUNGS: Bilateral air entry is present. No wheezing, no crackles. Nonlabored breathing. ABDOMEN: Soft, nontender. Bowel sounds are present. Hepatic drain in place with some serosanguineous discharge. CHEF SAUCIER: Awake, alert, oriented x3. No focal deficit. EXTREMITIES: No edema. Pulses felt bilaterally. No clubbing or cyanosis. PSYCHIATRIC: Cooperative Assessment and Plan Plan: 1. Liver abscess, status post CT guided drainage. 2. History of Croh. n's disease with recent exacerbation and chronically on Remicade and steroids on and off. 3. Previous history of liver abscess 10 years ago. 4. Hypertension. restaretd on amlodipine/benazapril 5. Hyperlipidemia. 6. Sepsis secondary to liver abscess. Patient did have tachycardia and leukocytosis on admission. 7. Morbid obesity with body mass index of 36.6. 8. Acute kidney injury, likely prerenal. 9. Mild hypercalcemia. iv invanz continue drain pt is follow up in a week, at that time can likely be discontinued PICC in the left arm, home with home care Patient Condition at Discharge: Stable Plan - Discharge Summary New Discharge Prescriptions: New Ertapenem [INVanz] 1 gm IVPB Q24H #21 bag Continue Rosuvastatin Calcium [Crestor] 20 mg PO DAILY Atenolol/Chlorthalidone [Atenolol-Chlorthalidone 100-25] 1 cap PO DAILY Fenofibrate 160 mg PO DAILY amLODIPine BESYLATE/BENAZEPRIL [amLODIPine BESYLATE/BENAZEPRIL 5-40 mg] 1 cap PO DAILY Acetaminophen [Tylenol] 650 mg PO Q6HR PRN PRN Reason: Pain inFLIXimab [Remicade] 1 injection IVPB Q42D Discharge Medication List Atenolol/Chlorthalidone [Atenolol-Chlorthalidone 100-25] 1 cap PO DAILY [History] Fenofibrate 160 mg PO DAILY 12/13/13 [History] Rosuvastatin Calcium [Crestor] 20 mg PO DAILY 12/13/13 [History] amLODIPine BESYLATE/BENAZEPRIL [amLODIPine BESYLATE/BENAZEPRIL 5-40 mg] 1 cap PO DAILY 12/13/13 [History] Acetaminophen [Tylenol] 650 mg PO Q6HR PRN 01/31/17 [History] inFLIXimab [Remicade] 1 injection IVPB Q42D 01/31/17 [History] Ertapenem [INVanz] 1 gm IVPB Q24H #21 bag 02/06/17 [Rx] Follow up Appointment(s)/Referral(s): Yeyo Loyd MD [STAFF PHYSICIAN] - 1 Week Mitra Portillo DO [Primary Care Provider] - 1-2 days Lori Sauceda PAC [REFERRING] - 03/02/17 1:30 pm Activity/Diet/Wound Care/Special Instructions: [facility]:[phone] [facility]: [phone] Discharge Disposition: HOME SELF-CARE
== END 2017-02-06 16:59 | disposition home or self-care (01) | DRG 871 ==
LOC: EC 08:44 → 3SUR 11:51
PROVIDERS: ADMIT Internal Medicine; ATTEND Internal Medicine
PROC: 0F9030Z Drainage of Liver with Drainage Device, Percutaneous Approach (ICD-10-PCS; 2017-02-01)
PROC: 02HV33Z Insertion of Infusion Device into Superior Vena Cava, Percutaneous Approach (ICD-10-PCS; principal; 2017-02-06 10:30)
DX: A41.9 Sepsis, unspecified organism (principal); K75.0 Abscess of liver; N17.9 Acute kidney failure, unspecified; E83.52 Hypercalcemia; E66.01 Morbid (severe) obesity due to excess calories; K50.00 Crohn's disease of small intestine without complications; I10 Essential (primary) hypertension; E78.5 Hyperlipidemia, unspecified; E66.9 Obesity, unspecified; R01.1 Cardiac murmur, unspecified; K42.9 Umbilical hernia without obstruction or gangrene; R00.0 Tachycardia, unspecified; K59.00 Constipation, unspecified; Z79.899 Other long term (current) drug therapy; Z92.25 Personal history of immunosuppression therapy; Z71.3 Dietary counseling and surveillance; Z86.19 Personal history of other infectious and parasitic diseases; Z87.19 Personal history of other diseases of the digestive system; Z92.241 Personal history of systemic steroid therapy
CPT/HCPCS: 36415; 36569; 74177; 75989; 76937; 77001; 80053; 81001; 82150; 83605; 83690; 84134; 85025; 85610; 85652; 87040; 87070; 87075; 87205; 88173; 88305; 96361; 96365; 96366; 96375; 99285

== ENCOUNTER 2017-02-08 17:47 | Observation (INO) | payer BC ==
--- NOTE | 2017-02-08 18:17 | ED ---
General Adult HPI - General Chief complaint: Recheck/Abnormal Lab/Rx Stated complaint: DRAIN TUBE DISLODGES Time Seen by Provider: 02/08/17 18:02 Source: patient, RN notes reviewed Mode of arrival: ambulatory Limitations: no limitations - History of Present Illness Initial comments: 46-year-old male presents emergency Department chief complaint drain tube dislodgment. Patient has hepatic abscess in which she had a drain placed on . This was under CT guidance. Patient's had 3 or abdominal abscesses in the past. Patient states his surgeon is Dr. Pearson followed by infectious disease Dr. Loyd. Patient states he is on IV antibiotics to a PICC line at this time. Patient had no fever no chills denies any increase abdominal pain. Patient states that the drain dislodged and sure how. - Related Data Home Medications Medication Instructions Recorded Confirmed Atenolol/Chlorthalidone 1 cap PO DAILY 12/13/13 01/31/17 [Atenolol-Chlorthalidone 100-25] Fenofibrate 160 mg PO DAILY 12/13/13 01/31/17 Rosuvastatin Calcium [Crestor] 20 mg PO DAILY 12/13/13 01/31/17 amLODIPine BESYLATE/BENAZEPRIL 1 cap PO DAILY 12/13/13 01/31/17 [amLODIPine BESYLATE/BENAZEPRIL 5-40 mg] Acetaminophen [Tylenol] 650 mg PO Q6HR PRN 01/31/17 01/31/17 inFLIXimab [Remicade] 1 injection IVPB Q42D 01/31/17 01/31/17 Previous Rx's Medication Instructions Recorded Ertapenem [INVanz] 1 gm IVPB Q24H #21 bag 02/06/17 Allergies Allergy/AdvReac Type Severity Reaction Status Date / Time No Known Allergies Allergy Verified 02/08/17 17:55 Review of Systems ROS Statement: Those systems with pertinent positive or pertinent negative responses have been documented in the HPI. ROS Other: All systems not noted in ROS Statement are negative. Past Medical History Past Medical History: Hyperlipidemia, Hypertension Additional Past Medical History / Comment(s): Chron's disease, abdominal bowel fissures and with first one he had severe infection, small bowel is narrowing History of Any Multi-Drug Resistant Organisms: None Reported Additional Past Surgical History / Comment(s): Draining of bowel fiissure thru R side- 1995, 1996, 2003, colonoscopies., drain of liver abscess Past Anesthesia/Blood Transfusion Reactions: No Reported Reaction Past Psychological History: No Psychological Hx Reported Smoking Status: Never smoker Past Alcohol Use History: None Reported Past Drug Use History: None Reported - Past Family History Father Family Medical History: No Reported History Mother Family Medical History: No Reported History General Exam Limitations: no limitations General appearance: alert, in no apparent distress Cardiovascular Exam: Present: regular rate, normal rhythm, normal heart sounds. Absent: systolic murmur, diastolic murmur, rubs, gallop, clicks GI/Abdominal exam: Present: soft, normal bowel sounds, other (Small incision noted to the right side of the abdomen were drain was). Absent: distended, tenderness, guarding, rebound, rigid Skin exam: Present: warm, dry, intact, normal color. Absent: rash Course Vital Signs 02/08/17 17:52 Temperature 99 F Pulse Rate 83 Respiratory 18 Rate Blood Pressure 141/90 O2 Sat by Pulse 97 Oximetry Medical Decision Making - Medical Decision Making Patient will be admitted for placement of his drain tube. Disposition Clinical Impression: Liver abscess Narrative: Intra-abdominal drain dislodgment Disposition: ADMITTED IP TO THIS HOSP Condition: Stable Referrals: Mitra Portillo DO [Primary Care Provider] - 1-2 days
[2017-02-08] MEDS ORDERED: HYDROcodone/APAP 5-325MG 1 EACH TAB PO PRN (18:42)
[2017-02-08] MEDS ORDERED: NALOXONE 0.4 MG/ML 1 ML VIAL IV PRN (18:42)
[2017-02-08] MEDS ORDERED: ACETAMINOPHEN TAB 325 MG TAB PO PRN (18:43)
[2017-02-08] MEDS ORDERED: ERTAPENEM 1 GM VIAL IVPB SCH (18:45)
[2017-02-08 18:50] LABS: Basophils # (A) 0.1 k/uL (0-0.2); Basophils % (A) 1 %; CH 30.5; CHCM 33.6; Eosinophils # (A) 0.2 k/uL (0-0.7); Eosinophils % (A) 2 %; HCT 43.6 % (39.0-53.0); HDW 2.85; HGB 14.4 gm/dL (13.0-17.5); Luc # (Auto) 0.14; Luc % (Auto) 1; Lymphocytes # (A) 1.7 k/uL (1.0-4.8); Lymphocytes % (A) 17 %; MCH 30.2 pg (25.0-35.0); MCHC 33.1 g/dL (31.0-37.0); MCV 91.2 fL (80.0-100.0); Monocytes # (A) 0.6 k/uL (0-1.0); Monocytes % (A) 6 %; Neutrophils # (A) 7.2 k/uL (1.3-7.7); Neutrophils % (A) 73 %; RBC 4.78 m/uL (4.30-5.90); RDW 15.6 % (11.5-15.5); WBC 9.8 k/uL (3.8-10.6); WBC (Perox) 9.41
[2017-02-08] MEDS ORDERED: ERTAPENEM 1 GM in SODIUM CHLORIDE 0.9% 50 ML IVPB STA (18:53)
[2017-02-08 19:06] LABS: ALT 76 U/L (21-72); AST 40 U/L (17-59); Alkaline Phosphatase 63 U/L (38-126); Anion Gap 12 mmol/L; Blood Urea Nitrogen 11 mg/dL (9-20); Calcium 9.7 mg/dL (8.4-10.2); Carbon Dioxide 29 mmol/L (22-30); Chloride 103 mmol/L (98-107); Glucose 92 mg/dL (74-99); Non-African American GFR(MDRD) >60 (>60 ml/min/1.73 sqM); Potassium 3.8 mmol/L (3.5-5.1); Sodium 144 mmol/L (137-145); Total Bilirubin 0.4 mg/dL (0.2-1.3); Total Protein 8.1 g/dL (6.3-8.2)
[2017-02-08] MEDS: MORPHINE SULFATE 4 MG/ML SYRINGE IV PRN (20:22)
[2017-02-08 20:53] VITALS: BMI 35.6
[2017-02-09] MEDS: MORPHINE SULFATE 4 MG/ML SYRINGE IV PRN (01:18)
[2017-02-09] MEDS: ERTAPENEM 1 GM in SODIUM CHLORIDE 0.9% 50 ML IVPB SCH (08:18)
[2017-02-09] MEDS ORDERED: CHLORTHALIDONE 25 MG TAB PO SCH (09:00)
[2017-02-09] MEDS ORDERED: amLODIPine 5 MG TAB PO SCH (09:00)
[2017-02-09] MEDS ORDERED: LISINOPRIL 20 MG TAB PO SCH (09:00)
[2017-02-09] MEDS ORDERED: ATENOLOL 50 MG TAB PO SCH (09:00)
[2017-02-09] MEDS ORDERED: FENOFIBRATE 160 MG TAB PO SCH (09:00)
[2017-02-09] MEDS ORDERED: ATORVASTATIN 40 MG TAB PO SCH (09:00)
[2017-02-09] MEDS ORDERED: RX INFO: IV CONTRAST WAS GIVEN 1 EACH MISC MISCELLANE PRN (13:45)
--- NOTE | 2017-02-09 14:49 | CT ---
EXAMINATION TYPE: CT abdomen w con DATE OF EXAM: 02/09/2017 COMPARISON: 01/31/2017 HISTORY: Abscess drainage tube fell out CT DLP: 1784.4 mGycm CONTRAST: CT scan of the abdomen is performed without Oral Contrast and with IV Contrast, patient injected with 100 mL of Omnipaque 300. FINDINGS: LUNG BASES-: No visible nodule. No infiltrate. LIVER/GB: Abscess within the right hepatic lobe persists although is significantly smaller in size an d currently measures 6.4 x 6.0 cm versus 9.5 x 8.0 cm. Most of the abscess is phlegmonous in appearan ce with several small fluid-filled cavities seen the largest of which measures 2.8 cm in greatest dim ension versus 7.8 cm previously diminished. No new abscesses identified. Persistent mild thickening o f the adjacent right lateral abdominal wall. Mild hepatic steatosis. PANCREAS: No inflammation. No distinct mass. SPLEEN: No splenic enlargement. No lesion seen. ADRENALS: No nodule. No thickening. KIDNEYS/BLADDER: No hydronephrosis. No nephrolithiasis. Small left renal cyst. Urinary bladder azael ssly unremarkable. BOWEL:Chronic changes of the distal ileum/terminal ileum compatible with the provided history of Croh n's disease. No active inflammation however is identified at this time. GENITAL ORGANS: No gross abnormality. LYMPH NODES: No greater than 1cm abdominal or pelvic lymph nodes are appreciated. AORTA: No significant abnormality. OSSEOUS STRUCTURES: No significant abnormality is seen. OTHER: Fat-containing umbilical hernia noted. IMPRESSION: 1. Hepatic abscess is smaller in size and is mostly phlegmonous in appearance with the fluid-filled c omponents significantly smaller in size. 2. Chronic changes of Crohn's disease.
--- NOTE | 2017-02-09 15:25 | P.HPIM ---
History of Present Illness H&P Date: 02/09/17 Chief Complaint: Dislodgment of a pigtail catheter This is a 46-year-old gentleman that was recently discharged from my service 3 days ago. Patient was noted to have a liver abscess per patient was discharged on IV Invanz. Patient is immunosuppressed due to ulcerative colitis. Patient apparently was doing well however during routine activities of daily living patient's catheter was dislodged. Patient has not had any significant increase in abdominal pain nausea vomiting diarrhea Patient came to the hospital. Today did evaluate the patient denies having any fevers chills headaches blurry vision chest pain. Obtain a stat computed tomography scan of the chest which showed a abscess cavity 6.8 cm compared to 9.2 cm previously The largest pocket of abscess is about 2.8 cm noted Review of Systems All systems: negative (Noted in HPI) Past Medical History Past Medical History: Hyperlipidemia, Hypertension Additional Past Medical History / Comment(s): Chron's disease, abdominal bowel fissures and with first one he had severe infection, small bowel is narrowing History of Any Multi-Drug Resistant Organisms: None Reported Additional Past Surgical History / Comment(s): Draining of bowel fiissure thru R side- 1995, 1996, 2003, colonoscopies., drain of liver abscess Past Anesthesia/Blood Transfusion Reactions: No Reported Reaction Past Psychological History: No Psychological Hx Reported Additional Psychological History / Comment(s): Pt resides alone. He is independent. Smoking Status: Never smoker Past Alcohol Use History: None Reported Additional Past Alcohol Use History / Comment(s): Patient is a lifelong nonsmoker. He denies any medical marijuana, marijuana, street drug or alcohol use. Patient is single and lives alone. He does not have pets in the home. 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 Past Drug Use History: None Reported - Past Family History Father Family Medical History: No Reported History Mother Family Medical History: No Reported History Medications and Allergies Home Medications Medication Instructions Recorded Confirmed Type Atenolol/Chlorthalidone 1 cap PO DAILY 12/13/13 02/08/17 History [Atenolol-Chlorthalidone 100-25] Fenofibrate 160 mg PO DAILY 12/13/13 02/08/17 History Rosuvastatin Calcium [Crestor] 20 mg PO DAILY 12/13/13 02/08/17 History amLODIPine BESYLATE/BENAZEPRIL 1 cap PO DAILY 12/13/13 02/08/17 History [amLODIPine BESYLATE/BENAZEPRIL 5-40 mg] Acetaminophen [Tylenol] 650 mg PO Q6HR PRN 01/31/17 02/08/17 History inFLIXimab [Remicade] 1 injection IVPB Q42D 01/31/17 02/08/17 History Allergies Allergy/AdvReac Type Severity Reaction Status Date / Time No Known Allergies Allergy Verified 02/08/17 18:48 Physical Exam Vitals: Vital Signs Temp Pulse Pulse Resp BP BP Pulse Ox 02/09/17 15:19 71 16 02/09/17 07:00 97.9 F 71 16 141/90 97 02/08/17 23:20 98.4 F 72 18 135/76 98 02/08/17 23:10 16 02/08/17 17:52 99 F 83 18 141/90 97 Intake and Output 02/09/17 02/09/17 02/09/17 06:59 14:59 22:59 Intake Total 100 Balance 100 Intake: Intake, IV Titration 100 Amount Ertapenem 1 gm In Sodium 100 Chloride 0.9% 50 ml @ 100 mls/hr IVPB DAILY [facility] Rx #:[id number] Other: Voiding Method Toilet Toilet # Voids 1 3 3 Weight 126.099 kg 126.099 kg Patient Weight 02/10/17 06:59 Weight 126.099 kg Physical exam Gen. appearance oriented 3 in no distress Neck is supple no JVD Lungs good air entry clear to auscultation no rhonchi or wheezing Heart S1-S2 heard regular rate and rhythm no murmurs appreciated Abdomen is soft nontender no organomegaly bowel sounds are intact Neurologically cranial nerves II-12 grossly intact no focal motor or sensory deficits noted Skin no abnormalities appreciated Results CBC & Chem 7: 02/08/17 18:36 02/08/17 18:36 Labs: Abnormal Lab Results - Last 24 Hours (Table) 02/08/17 02/08/17 Range/Units 18:36 18:36 RDW 15.6 H (11.5-15.5) % ALT 76 H (21-72) U/L Thrombosis Risk Factor Assmnt - Choose All That Apply Each Factor Represents 1 point: Age 41-60 years Thrombosis Risk Factor Assessment Total Risk Factor Score: 1 Thrombosis Risk Factor Assessment Level: Low Risk Assessment and Plan Plan: #1 liver abscess status post IV antibiotics and CT-guided pigtail catheter placement which was discharged #2 history of Crohn's disease #3 essential hypertension #4 dyslipidemia #5 recent sepsis. #6 obesity Plan With the computed tomography scan a replacement of the pigtail catheter will be done as patient continues to have a small abscess cavity it needs to be drained Continue with IV antibiotics Patient will likely be discharged after the placement of the pigtail catheter
--- NOTE | 2017-02-09 17:47 | P.GSCN ---
History of Present Illness Consult date: 02/09/17 Reason for Consult: Hepatic abscess History of present illness: This is a 46-year-old male who has history of a CT-guided drain placement hepatic abscess. Patient states that he was putting on his shorts when his catheter was accidentally dislodged. Patient denies any significant abdominal pain. Past Medical History Past Medical History: Hyperlipidemia, Hypertension Additional Past Medical History / Comment(s): Chron's disease, abdominal bowel fissures and with first one he had severe infection, small bowel is narrowing History of Any Multi-Drug Resistant Organisms: None Reported Additional Past Surgical History / Comment(s): Draining of bowel fiissure thru R side- 1995, 1996, 2003, colonoscopies., drain of liver abscess Past Anesthesia/Blood Transfusion Reactions: No Reported Reaction Past Psychological History: No Psychological Hx Reported Additional Psychological History / Comment(s): Pt resides alone. He is independent. Smoking Status: Never smoker Past Alcohol Use History: None Reported Additional Past Alcohol Use History / Comment(s): Patient is a lifelong nonsmoker. He denies any medical marijuana, marijuana, street drug or alcohol use. Patient is single and lives alone. He does not have pets in the home. 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 Past Drug Use History: None Reported - Past Family History Father Family Medical History: No Reported History Mother Family Medical History: No Reported History Medications and Allergies Home Medications Medication Instructions Recorded Confirmed Type Atenolol/Chlorthalidone 1 cap PO DAILY 12/13/13 02/08/17 History [Atenolol-Chlorthalidone 100-25] Fenofibrate 160 mg PO DAILY 12/13/13 02/08/17 History Rosuvastatin Calcium [Crestor] 20 mg PO DAILY 12/13/13 02/08/17 History amLODIPine BESYLATE/BENAZEPRIL 1 cap PO DAILY 12/13/13 02/08/17 History [amLODIPine BESYLATE/BENAZEPRIL 5-40 mg] Acetaminophen [Tylenol] 650 mg PO Q6HR PRN 01/31/17 02/08/17 History inFLIXimab [Remicade] 1 injection IVPB Q42D 01/31/17 02/08/17 History Allergies Allergy/AdvReac Type Severity Reaction Status Date / Time No Known Allergies Allergy Verified 02/08/17 18:48 Surgical - Exam Vital Signs Temp Pulse Resp BP Pulse Ox 99 F 83 18 141/90 97 02/08/17 17:52 02/08/17 17:52 02/08/17 17:52 02/08/17 17:52 02/08/17 17:52 - General well developed, no distress - Eyes PERRL - ENT normal pinna - Neck no masses - Respiratory normal expansion - Abdomen Abdomen: soft, non tender Results - Labs 02/08/17 18:36 02/08/17 18:36 Abnormal Lab Results - Last 24 Hours (Table) 02/08/17 02/08/17 Range/Units 18:36 18:36 RDW 15.6 H (11.5-15.5) % ALT 76 H (21-72) U/L Diabetes panel 02/08/17 Range/Units 18:36 Sodium 144 (137-145) mmol/L Potassium 3.8 (3.5-5.1) mmol/L Chloride 103 (98-107) mmol/L Carbon Dioxide 29 (22-30) mmol/L BUN 11 (9-20) mg/dL Creatinine 0.78 (0.66-1.25) mg/dL Glucose 92 (74-99) mg/dL Calcium 9.7 (8.4-10.2) mg/dL AST 40 (17-59) U/L ALT 76 H (21-72) U/L Alkaline Phosphatase 63 (38-126) U/L Total Protein 8.1 (6.3-8.2) g/dL Albumin 4.2 (3.5-5.0) g/dL Calcium panel 02/08/17 Range/Units 18:36 Calcium 9.7 (8.4-10.2) mg/dL Albumin 4.2 (3.5-5.0) g/dL Pituitary panel 02/08/17 Range/Units 18:36 Sodium 144 (137-145) mmol/L Potassium 3.8 (3.5-5.1) mmol/L Chloride 103 (98-107) mmol/L Carbon Dioxide 29 (22-30) mmol/L BUN 11 (9-20) mg/dL Creatinine 0.78 (0.66-1.25) mg/dL Glucose 92 (74-99) mg/dL Calcium 9.7 (8.4-10.2) mg/dL Adrenal panel 02/08/17 Range/Units 18:36 Sodium 144 (137-145) mmol/L Potassium 3.8 (3.5-5.1) mmol/L Chloride 103 (98-107) mmol/L Carbon Dioxide 29 (22-30) mmol/L BUN 11 (9-20) mg/dL Creatinine 0.78 (0.66-1.25) mg/dL Glucose 92 (74-99) mg/dL Calcium 9.7 (8.4-10.2) mg/dL Total Bilirubin 0.4 (0.2-1.3) mg/dL AST 40 (17-59) U/L ALT 76 H (21-72) U/L Alkaline Phosphatase 63 (38-126) U/L Total Protein 8.1 (6.3-8.2) g/dL Albumin 4.2 (3.5-5.0) g/dL Assessment and Plan Plan: History of hepatic abscess. Patient's repeat CAT scan shows a abscess cavity which is much smaller in size. Dr. Loyd is scheduled see the patient. The patient may benefit from replacement of the catheter. I will let Dr. Loyd decide if this is needed.
--- NOTE | 2017-02-09 21:33 | P.CONS ---
History of Present Illness - Reason for Consult Consult date: 02/09/17 - Chief Complaint Liver abscess - History of Present Illness Pleasant 46-year-old male with a long-standing history of Crohn's disease who was treated with Remicade was recently hospitalized. Evaluation revealed evidence of an extensive liver abscess. He underwent percutaneous drainage and was starting to have improvement. He was responding well to the intravenous antibiotic therapy of Invanz. He was no longer having fevers or chills, appetite was improving. Was having no difficulties. The percutaneous drain was accidentally dislodged and presented back to hospital for further intervention. With this the infectious disease/was requested. The patient was sent fortunately his without recurrent sepsis. Review of Systems Constitutional: Denies chills, Denies fever Eyes: denies blurred vision, denies pain Ears, nose, mouth and throat: Denies headache, Denies sore throat Cardiovascular: Denies chest pain, Denies shortness of breath Respiratory: Denies cough Gastrointestinal: Reports abdominal pain, Reports constipation, Denies diarrhea , Denies nausea, Denies vomiting Musculoskeletal: Denies myalgias Integumentary: Denies pruritus, Denies rash Neurological: Denies numbness, Denies weakness Psychiatric: Denies anxiety, Denies depression Endocrine: Denies fatigue, Denies weight change Past Medical History Past Medical History: Hyperlipidemia, Hypertension Additional Past Medical History / Comment(s): Chron's disease, abdominal bowel fissures and with first one he had severe infection, small bowel is narrowing History of Any Multi-Drug Resistant Organisms: None Reported Additional Past Surgical History / Comment(s): Draining of bowel fiissure thru R side- 1995, 1996, 2003, colonoscopies., drain of liver abscess Past Anesthesia/Blood Transfusion Reactions: No Reported Reaction Past Psychological History: No Psychological Hx Reported Additional Psychological History / Comment(s): Pt resides alone. He is independent. Smoking Status: Never smoker Past Alcohol Use History: None Reported Additional Past Alcohol Use History / Comment(s): Patient is a lifelong nonsmoker. He denies any medical marijuana, marijuana, street drug or alcohol use. Patient is single and lives alone. He does not have pets in the home. 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 Past Drug Use History: None Reported - Past Family History Father Family Medical History: No Reported History Mother Family Medical History: No Reported History Medications and Allergies Home Medications and Allergies Comment(s): Current Medications Acetaminophen (Tylenol Tab) 650 mg PO Q6HR PRN PRN Reason: Pain Hydrocodone Bitart/Acetaminophen (Regent 5-325) 1 each PO Q4HR PRN PRN Reason: Moderate Pain Last Admin: 02/09/17 12:21 Dose: 1 each Amlodipine Besylate (Norvasc) 5 mg PO DAILY [facility] Last Admin: 02/09/17 08:17 Dose: 5 mg Atenolol (Tenormin) 100 mg PO DAILY [facility] Last Admin: 02/09/17 08:17 Dose: 100 mg Atorvastatin Calcium (Lipitor) 40 mg PO DAILY [facility] Last Admin: 02/09/17 08:18 Dose: Not Given Chlorthalidone (Hygroton) 25 mg PO DAILY [facility] Last Admin: 02/09/17 08:17 Dose: 25 mg Fenofibrate (Lofibra) 160 mg PO DAILY [facility] Last Admin: 02/09/17 08:18 Dose: Not Given Ertapenem 1 gm/ Sodium (Chloride) 50 mls @ 100 mls/hr IVPB DAILY [facility] Stop: 02/26/17 23:00 Last Admin: 02/09/17 08:18 Dose: 100 mls/hr Lisinopril (Zestril) 40 mg PO DAILY [facility] [place] Last Admin: 02/09/17 08:17 Dose: 40 mg Miscellaneous Information (Rx Info: Iv Contrast Was Given) 1 each MISCELLANE DAILY PRN PRN Reason: Per Protocol Stop: 02/11/17 13:48 Morphine Sulfate (Morphine Sulfate (Inj)) 4 mg IV Q4HR PRN PRN Reason: Severe Pain Last Admin: 02/09/17 01:18 Dose: 4 mg Naloxone HCl (Narcan) 0.2 mg IV Q2M PRN PRN Reason: Opioid Reversal Home Medications Medication Instructions Recorded Confirmed Type Atenolol/Chlorthalidone 1 cap PO DAILY 12/13/13 02/08/17 History [Atenolol-Chlorthalidone 100-25] Fenofibrate 160 mg PO DAILY 12/13/13 02/08/17 History Rosuvastatin Calcium [Crestor] 20 mg PO DAILY 12/13/13 02/08/17 History amLODIPine BESYLATE/BENAZEPRIL 1 cap PO DAILY 12/13/13 02/08/17 History [amLODIPine BESYLATE/BENAZEPRIL 5-40 mg] Acetaminophen [Tylenol] 650 mg PO Q6HR PRN 01/31/17 02/08/17 History inFLIXimab [Remicade] 1 injection IVPB Q42D 01/31/17 02/08/17 History Allergies Allergy/AdvReac Type Severity Reaction Status Date / Time No Known Allergies Allergy Verified 02/08/17 18:48 Physical Exam Vitals: Vital Signs Temp Pulse Resp BP Pulse Ox 02/09/17 15:19 71 16 02/09/17 15:00 98 F 65 16 141/81 96 02/09/17 07:00 97.9 F 71 16 141/90 97 02/08/17 23:20 98.4 F 72 18 135/76 98 02/08/17 23:10 16 Intake and Output 02/09/17 02/09/17 02/09/17 06:59 14:59 22:59 Intake Total 100 Balance 100 Intake: Intake, IV Titration 100 Amount Ertapenem 1 gm In Sodium 100 Chloride 0.9% 50 ml @ 100 mls/hr IVPB DAILY [facility] Rx #:[id number] Other: Voiding Method Toilet Toilet # Voids 1 3 3 Weight 126.099 kg 126.099 kg Patient Weight 02/10/17 06:59 Weight 126.099 kg Gen: This is a 46-year-old obese male. He is in bed and appears to be comfortable. No acute distress is noted. HEENT: Head is atraumatic, normocephalic. Pupils equal, round. Sclerae is anicteric. Conjunctiva pink. Mucous members of the mouth are moist. No thrush noted. Dentition in good order.. NECK: Supple. No JVD. No lymphadenopathy. No thyromegaly. LUNGS: Clear to auscultation. No wheezes or rhonchi. No intercostal retractions. HEART: Regular rate and rhythm. No murmur. ABDOMEN: Soft. Bowel sounds are present. No masses. Tenderness to the right upper quadrant and right lateral abdomen. EXTREMITIES: No pedal edema. No calf tenderness. Dorsalis pedis +2 bilaterally. NEUROLOGICAL: Patient is awake, alert and oriented x3 Results CBC & Chem 7: 02/08/17 18:36 02/08/17 18:36 Labs: Microbiology - Last 24 Hours (Table) 02/08/17 18:36 Blood Culture - Preliminary Blood No Growth after 24 hours Laboratory Results WBC 9.8 k/uL (3.8-10.6) 02/08/17 18:36 RBC 4.78 m/uL (4.30-5.90) 02/08/17 18:36 Hgb 14.4 gm/dL (13.0-17.5) 02/08/17 18:36 Hct 43.6 % (39.0-53.0) 02/08/17 18:36 MCV 91.2 fL (80.0-100.0) 02/08/17 18:36 MCH 30.2 pg (25.0-35.0) 02/08/17 18:36 MCHC 33.1 g/dL (31.0-37.0) 02/08/17 18:36 RDW 15.6 % (11.5-15.5) H 02/08/17 18:36 Plt Count 446 k/uL (150-450) 02/08/17 18:36 Neutrophils % 73 % 02/08/17 18:36 Lymphocytes % 17 % 02/08/17 18:36 Monocytes % 6 % 02/08/17 18:36 Eosinophils % 2 % 02/08/17 18:36 Basophils % 1 % 02/08/17 18:36 Neutrophils # 7.2 k/uL (1.3-7.7) 02/08/17 18:36 Lymphocytes # 1.7 k/uL (1.0-4.8) 02/08/17 18:36 Monocytes # 0.6 k/uL (0-1.0) 02/08/17 18:36 Eosinophils # 0.2 k/uL (0-0.7) 02/08/17 18:36 Basophils # 0.1 k/uL (0-0.2) 02/08/17 18:36 Sodium 144 mmol/L (137-145) 02/08/17 18:36 Potassium 3.8 mmol/L (3.5-5.1) 02/08/17 18:36 Chloride 103 mmol/L (98-107) 02/08/17 18:36 Carbon Dioxide 29 mmol/L (22-30) 02/08/17 18:36 Anion Gap 12 mmol/L 02/08/17 18:36 BUN 11 mg/dL (9-20) 02/08/17 18:36 Creatinine 0.78 mg/dL (0.66-1.25) 02/08/17 18:36 Est GFR (MDRD) Af Amer >60 (>60 ml/min/1.73 sqM) 02/08/17 18:36 Est GFR (MDRD) Non-Af >60 (>60 ml/min/1.73 sqM) 02/08/17 18:36 Glucose 92 mg/dL (74-99) 02/08/17 18:36 Calcium 9.7 mg/dL (8.4-10.2) 02/08/17 18:36 Total Bilirubin 0.4 mg/dL (0.2-1.3) 02/08/17 18:36 AST 40 U/L (17-59) 02/08/17 18:36 ALT 76 U/L (21-72) H 02/08/17 18:36 Alkaline Phosphatase 63 U/L (38-126) 02/08/17 18:36 Total Protein 8.1 g/dL (6.3-8.2) 02/08/17 18:36 Albumin 4.2 g/dL (3.5-5.0) 02/08/17 18:36 Microbiology 02/08/17 18:36 Blood Blood Culture - Preliminary No Growth after [address] scan - abdomen: image reviewed (The abscess cavity has improved. This has gone from 7.8-2.8 cm.) Assessment and Plan (1) Liver abscess Narrative/Plan: Pleasant 46-year-old male presents to Hospital after his percutaneous drain for his hepatic abscess became dislodged. The patient fortunately did not have acute recurrence of fevers chills or sepsis. As noted on follow-up computed tomography scan there is still nearly a 3 cm abscess present. Given the ongoing size of the abscess it is prudent for repeat percutaneous drainage and drain placement. He will continue his intravenous antibiotic therapy with ertapenem which is getting excellent coverage for the isolate Streptococcus viridans and other pathogens likely related to the hepatic abscess. He will have a follow-up computed tomography scan on February 22, with likely discontinuation of antibiotic the day after. He for she is on antibiotic therapy well. His Crohn's is under good control. He has been able to tolerate a diet without significant nausea or emesis. Status: Acute (2) Crohns disease Status: Acute
[2017-02-10 07:48] VITALS: TEMP 97.9
--- NOTE | 2017-02-10 08:40 | P.PN ---
Progress Note - Text The patient has a nonsurgical abscess of the liver, will sign off. please notify general surgery if condition changes. Thank you.
[2017-02-10] MEDS: ERTAPENEM 1 GM in SODIUM CHLORIDE 0.9% 50 ML IVPB SCH (09:12)
[2017-02-10] MEDS: MORPHINE SULFATE 4 MG/ML SYRINGE IV PRN (13:38)
[2017-02-10] MEDS ORDERED: HYDROmorphone 1 MG/ML 1 ML SYRINGE IVP STA (14:14)
[2017-02-10 14:20] VITALS: RESP 14
[2017-02-10 14:38] VITALS: BP 150/83; PULSE 98
--- NOTE | 2017-02-10 15:42 | CT ---
EXAMINATION TYPE: CT guided abscess drainage DATE OF EXAM: 02/10/2017 HISTORY: Liver abscess, catheter was removed COMPARISON: NONE PROCEDURE: Maximal barrier technique was utilized. The skin over suitable path to the abscess was localized wit h CT and the overlying skin prepped and draped. Lidocaine was used for local anesthesia. A skin shreyas k made with a scalpel. Access was gained using CT guidance with a 21-gauge needle, purulent material returned in the hub of the needle. A 0.018 inch wire was advanced and the access site was upsized, the wire was upsized and subsequently an 8.5-[place] drain was deployed within the abscess cavity and fixed in place. Catheter attached to gravity drainage. No immediate complication. Purulent materia l sent for laboratory analysis and draining into the bag. The patient remained in stable condition. IMPRESSION: STATUS POST CT GUIDED ABSCESS DRAINAGE. THIS PROCEDURE WAS PERFORMED BY THE UNDERSIGNED.
--- NOTE | 2017-02-10 17:13 | P.DS ---
Providers Date of admission: 02/08/17 18:52 Attending physician: Chris Mckeon Consults: 02/09/17 09:50 Consult Physician Routine Consulting Provider: Jarod Velazquez Consult Reason/Comments: liver abscess drain dislodged Do you want consulting provider notified?: Yes 02/09/17 12:46 Consult Physician Routine Consulting Provider: Yeyo Loyd Consult Reason/Comments: liver abscess Do you want consulting provider notified?: Yes Primary care physician: Mitra Portillo [facility] Course: This is a 46-year-old gentleman that was recently discharged from my service 3 days ago. Patient was noted to have a liver abscess per patient was discharged on IV Invanz. Patient is immunosuppressed due to ulcerative colitis. Patient apparently was doing well however during routine activities of daily living patient's catheter was dislodged. Patient has not had any significant increase in abdominal pain nausea vomiting diarrhea Patient came to the hospital. Today did evaluate the patient denies having any fevers chills headaches blurry vision chest pain. Obtain a stat computed tomography scan of the chest which showed a abscess cavity 6.8 cm compared to 9.2 cm previously The largest pocket of abscess is about 2.8 cm noted Physical exam Gen. appearance oriented 3 in no distress Neck is supple no JVD Lungs good air entry clear to auscultation no rhonchi or wheezing Heart S1-S2 heard regular rate and rhythm no murmurs appreciated Abdomen is soft nontender no organomegaly bowel sounds are intact Neurologically cranial nerves II-12 grossly intact no focal motor or sensory deficits noted Skin no abnormalities appreciated Assessment and Plan Plan: #1 liver abscess status post IV antibiotics and CT-guided pigtail catheter placement which was discharged #2 history of Crohn's disease #3 essential hypertension #4 dyslipidemia #5 recent sepsis. #6 obesity Continue with IV antibiotics Patient will likely be discharged after the placement of the pigtail catheter Patient Condition at Discharge: Stable Plan - Discharge Summary New Discharge Prescriptions: Continue Rosuvastatin Calcium [Crestor] 20 mg PO DAILY Atenolol/Chlorthalidone [Atenolol-Chlorthalidone 100-25] 1 cap PO DAILY Fenofibrate 160 mg PO DAILY amLODIPine BESYLATE/BENAZEPRIL [amLODIPine BESYLATE/BENAZEPRIL 5-40 mg] 1 cap PO DAILY Acetaminophen [Tylenol] 650 mg PO Q6HR PRN PRN Reason: Pain inFLIXimab [Remicade] 1 injection IVPB Q42D Ertapenem [INVanz] 1 gm IVPB Q24H #21 bag Discharge Medication List Atenolol/Chlorthalidone [Atenolol-Chlorthalidone 100-25] 1 cap PO DAILY [History] Fenofibrate 160 mg PO DAILY 12/13/13 [History] Rosuvastatin Calcium [Crestor] 20 mg PO DAILY 12/13/13 [History] amLODIPine BESYLATE/BENAZEPRIL [amLODIPine BESYLATE/BENAZEPRIL 5-40 mg] 1 cap PO DAILY 12/13/13 [History] Acetaminophen [Tylenol] 650 mg PO Q6HR PRN 01/31/17 [History] inFLIXimab [Remicade] 1 injection IVPB Q42D 01/31/17 [History] Ertapenem [INVanz] 1 gm IVPB Q24H #21 bag 02/06/17 [Rx] Follow up Appointment(s)/Referral(s): Mitra Portillo DO [Primary Care Provider] - 02/24/17 1:40 pm Ana [facility], [NON-STAFF] - Activity/Diet/Wound Care/Special Instructions: 1. Activity as tolerated 2. Diet as tolerated Discharge Disposition: HOME WITH HOME HEALTH SERVICES
--- NOTE | 2017-02-10 17:26 | P.PN ---
Subjective Principal diagnosis: Liver abscess Pleasant 46-year-old male with a long-standing history of Crohn's disease who was treated with Remicade was recently hospitalized. Evaluation revealed evidence of an extensive liver abscess. He underwent percutaneous drainage and was starting to have improvement. He was responding well to the intravenous antibiotic therapy of Invanz. He was no longer having fevers or chills, appetite was improving. Was having no difficulties. The percutaneous drain was accidentally dislodged and presented back to hospital for further intervention. With this the infectious disease/was requested. The patient was sent fortunately without recurrent sepsis. The catheter is now been replaced. He is ready for discharge to home. Objective - Vital Signs Vital signs: Vital Signs Temp 97.9 F 02/10/17 07:00 Pulse 98 02/10/17 14:37 Resp 14 02/10/17 14:37 BP 150/83 02/10/17 14:37 Pulse Ox 93 L 02/10/17 14:37 Intake & Output 02/09/17 02/10/17 02/10/17 18:59 06:59 18:59 Intake Total 100 200 50 Balance 100 200 50 Weight 126.099 kg 126.099 kg Intake: IV 50 Ertapenem 1 gm In Sodium 50 Chloride 0.9% 50 ml @ 100 mls/hr IVPB DAILY [facility] Rx #:[id number] Intake, IV Titration 100 Amount Ertapenem 1 gm In Sodium 100 Chloride 0.9% 50 ml @ 100 mls/hr IVPB DAILY [facility] Rx #:[id number] Oral 200 Other: Voiding Method Toilet Toilet Toilet # Voids 3 2 - Exam Gen: This is a 46-year-old obese male. He is in bed and appears to be comfortable. No acute distress is noted. HEENT: Head is atraumatic, normocephalic. Pupils equal, round. Sclerae is anicteric. Conjunctiva pink. Mucous members of the mouth are moist. No thrush noted. Dentition in good order.. NECK: Supple. No JVD. No lymphadenopathy. No thyromegaly. LUNGS: Clear to auscultation. No wheezes or rhonchi. No intercostal retractions. HEART: Regular rate and rhythm. No murmur. ABDOMEN: Soft. Bowel sounds are present. No masses. Tenderness to the right upper quadrant and right lateral abdomen. The new percutaneous drain is in place. Small amount of present ranges noted. Further tape is applied to ensure is taped down more securely. EXTREMITIES: No pedal edema. No calf tenderness. Dorsalis pedis +2 bilaterally. NEUROLOGICAL: Patient is awake, alert and oriented x3 - Labs CBC & Chem 7: 02/08/17 18:36 02/08/17 18:36 Labs: Microbiology - Last 24 Hours (Table) 02/08/17 18:36 Blood Culture - Preliminary Blood No Growth after 24 hours Laboratory Results WBC 9.8 k/uL (3.8-10.6) 02/08/17 18:36 RBC 4.78 m/uL (4.30-5.90) 02/08/17 18:36 Hgb 14.4 gm/dL (13.0-17.5) 02/08/17 18:36 Hct 43.6 % (39.0-53.0) 02/08/17 18:36 MCV 91.2 fL (80.0-100.0) 02/08/17 18:36 MCH 30.2 pg (25.0-35.0) 02/08/17 18:36 MCHC 33.1 g/dL (31.0-37.0) 02/08/17 18:36 RDW 15.6 % (11.5-15.5) H 02/08/17 18:36 Plt Count 446 k/uL (150-450) 02/08/17 18:36 Neutrophils % 73 % 02/08/17 18:36 Lymphocytes % 17 % 02/08/17 18:36 Monocytes % 6 % 02/08/17 18:36 Eosinophils % 2 % 02/08/17 18:36 Basophils % 1 % 02/08/17 18:36 Neutrophils # 7.2 k/uL (1.3-7.7) 02/08/17 18:36 Lymphocytes # 1.7 k/uL (1.0-4.8) 02/08/17 18:36 Monocytes # 0.6 k/uL (0-1.0) 02/08/17 18:36 Eosinophils # 0.2 k/uL (0-0.7) 02/08/17 18:36 Basophils # 0.1 k/uL (0-0.2) 02/08/17 18:36 Sodium 144 mmol/L (137-145) 02/08/17 18:36 Potassium 3.8 mmol/L (3.5-5.1) 02/08/17 18:36 Chloride 103 mmol/L (98-107) 02/08/17 18:36 Carbon Dioxide 29 mmol/L (22-30) 02/08/17 18:36 Anion Gap 12 mmol/L 02/08/17 18:36 BUN 11 mg/dL (9-20) 02/08/17 18:36 Creatinine 0.78 mg/dL (0.66-1.25) 02/08/17 18:36 Est GFR (MDRD) Af Amer >60 (>60 ml/min/1.73 sqM) 02/08/17 18:36 Est GFR (MDRD) Non-Af >60 (>60 ml/min/1.73 sqM) 02/08/17 18:36 Glucose 92 mg/dL (74-99) 02/08/17 18:36 Calcium 9.7 mg/dL (8.4-10.2) 02/08/17 18:36 Total Bilirubin 0.4 mg/dL (0.2-1.3) 02/08/17 18:36 AST 40 U/L (17-59) 02/08/17 18:36 ALT 76 U/L (21-72) H 02/08/17 18:36 Alkaline Phosphatase 63 U/L (38-126) 02/08/17 18:36 Total Protein 8.1 g/dL (6.3-8.2) 02/08/17 18:36 Albumin 4.2 g/dL (3.5-5.0) 02/08/17 18:36 Microbiology 02/08/17 18:36 Blood Blood Culture - Preliminary No Growth after 24 hours Assessment and Plan (1) Liver abscess Narrative/Plan: Pleasant 46-year-old male presents to Hospital after his percutaneous drain for his hepatic abscess became dislodged. The patient fortunately did not have acute recurrence of fevers chills or sepsis. As noted on follow-up computed tomography scan there is still nearly a 3 cm abscess present. Given the ongoing size of the abscess it is prudent for repeat percutaneous drainage and drain placement. He will continue his intravenous antibiotic therapy with ertapenem which is getting excellent coverage for the isolate Streptococcus viridans and other pathogens likely related to the hepatic abscess. He will have a follow-up computed tomography scan on February 22, with likely discontinuation of antibiotic the day after. He for she is on antibiotic therapy well. His Crohn's is under good control. He has been able to tolerate a diet without significant nausea or emesis. The patient is now had the percutaneous drain replaced. He'll continue his intravenous antibiotic therapy with Invanz until 02/23/2017. We'll do an outpatient computed tomography scan scheduled for February 22 ensure that the abscess has resolved well enough for removal of the catheter and have antibiotic plan solidified at that time. Status: Acute (2) Crohns disease Status: Acute
== END 2017-02-10 15:21 | disposition home health service (06) ==
LOC: EC 17:47 → 5MS5E 18:52 → INTOOBSV 18:52 → 5MS5E 19:51
PROVIDERS: ADMIT Internal Medicine; ATTEND Internal Medicine
DX: K75.0 Abscess of liver (principal); K50.90 Crohn's disease, unspecified, without complications; I10 Essential (primary) hypertension; E78.5 Hyperlipidemia, unspecified; E66.9 Obesity, unspecified; Z79.2 Long term (current) use of antibiotics; Z79.899 Other long term (current) drug therapy; Z86.19 Personal history of other infectious and parasitic diseases
CPT/HCPCS: 99284 ×2; 96376 ×2; 96365; 96366; 96375 ×2; 36415; 80053; 85025; 87040; 96374; 74160; 75989; G0378 ×4; J2270 ×3; J1335 ×2; J1170; Q9967

== ENCOUNTER 2017-02-17 09:53 | Day surgery (SDC) | payer BC ==
[2017-02-17 11:25] VITALS: BP 116/64; PULSE 98; RESP 18; TEMP 98
--- NOTE | 2017-03-02 10:54 | P.PN ---
Progress Note - Text patient came for f/u drain catheter check, and was noted that the tube had not drained and had pulled from abscess, was just deep to skin. tube cut and removed in total. patient discharged without complication, f/u per referring clinician, discharge to home with instructions
== END 2017-02-17 11:15 | disposition home or self-care (01) ==
LOC: RADPROMAIN 09:53
PROVIDERS: ATTEND Radiology Diagnostic Radiology
DX: Z48.03 Encounter for change or removal of drains (principal)
CPT/HCPCS: 99213

== ENCOUNTER → 2017-02-22 | Outpatient (CLI) | payer BC ==
[2017-02-22 09:24] LABS: Blood Urea Nitrogen 18 mg/dL (9-20); Non-African American GFR(MDRD) >60 (>60 ml/min/1.73 sqM)
--- NOTE | 2017-02-22 12:00 | CT ---
EXAMINATION TYPE: CT abdomen w con DATE OF EXAM: 02/22/2017 COMPARISON: Prior CT abdomen 02/09/2017 HISTORY: Patient has no complaints at time of study. Follow up study for known liver abscess. CT DLP: 2771.7 mGycm Automated exposure control for dose reduction was used. TECHNIQUE: Helical acquisition of images was performed from the lung bases through the top of iliac crest to include entire abdomen. CONTRAST: Performed with Oral Contrast and with IV Contrast, patient injected with 100 mL of Omnipaque 300. FINDINGS: LUNG BASES: No significant abnormality is appreciated. LIVER/GB: The area of low-attenuation within the right lobe of the liver shows decreased in size as c ompared to prior exam, central decreased density may represent residual fluid measuring only approxim ately 3 cm in greatest dimension as compared to previous when it measured approximately 4.1 cm. The s mall collection of fluid at the level of the liver surface is also diminished in size and only measur es approximately 2.6 x 0.7 cm whereas on previous exam measured approximately 3.3 x 1.2 cm. The gallb ladder is unremarkable. PANCREAS: No significant abnormality is seen. SPLEEN: No significant abnormality is seen. ADRENALS: No significant abnormality is seen. KIDNEYS: Stable calcification noted midpole right kidney is punctate and nonobstructive. Small cortic al cysts associated with the left kidney. BOWEL: There is a tethered appearance likely due to post inflammatory change within the distal ileum similar to prior exam likely due to postinflammatory scarring. Umbilical hernia contains fat as on p rior. LYMPH NODES: No significant abnormality is appreciated. OSSEOUS STRUCTURES: No significant abnormality is seen. FREE AIR: No Free Air visible ASCITES: None visible. RETROPERITONEAL ADENOPATHY: No Retroperitoneal Adenopathy visible. OTHER: IMPRESSION: HEPATIC FLUID COLLECTION HAS DIMINISHED IN SIZE.
== END | disposition home or self-care (01) ==
LOC: RADPROMAIN 08:49
PROVIDERS: ATTEND Internal Medicine Infectious Disease
DX: K75.0 Abscess of liver (principal)
CPT/HCPCS: 82565; 84520; 74160; Q9967

== ENCOUNTER → 2017-03-09 | Outpatient (CLI) | payer BC ==
--- NOTE | 2017-03-09 09:30 | CT ---
EXAMINATION TYPE: CT abdomen w con DATE OF EXAM: 03/09/2017 COMPARISON: NONE HISTORY: Abscess of Liver. History of Crohn's disease. CT DLP: 2851.80 mGycm Automated exposure control for dose reduction was used. TECHNIQUE: Helical acquisition of images was performed from the lung bases through the top of iliac crest to include entire abdomen. CONTRAST: Performed with Oral Contrast and with IV Contrast, patient injected with 100 ml mL of Omnipaque 300. FINDINGS: LUNG BASES: Single right middle lobe calcified granulomas noted as well as nodular area of lingular t hickening, thought to relate to chronic atelectasis. LIVER/GB: No discrete fluid collection is identified, however there is a wedge-shaped area of hypoatt enuation involving segments 4B and 5 in the region of the previously seen hepatic abscess adjacent to the subcutaneous fat stranding from the percutaneous aspiration. A small amount of fascial thickenin g and fat stranding is seen in the perihepatic region just inferior on series 3 image 47 and 46. No n ew focal cystic or solid lesions are seen within the hepatic parenchyma. No perihepatic fluid collect ion is identified. Gallbladder remains unremarkable. PANCREAS: No significant abnormality is seen. SPLEEN: No significant abnormality is seen. ADRENALS: The right adrenal gland is unremarkable. There is nodular thickening without discrete nodul e of the medial limb of the left adrenal gland. Emanating from the lateral limb of the left adrenal g land there is ar 9 mm lesion with macroscopic fat representing a benign myelolipoma. KIDNEYS: Stable punctate right midpole renal calculus is seen and unchanged cortical cysts are presen t with mild nonspecific perinephric fat stranding or laterally. BOWEL: Although the entirety of the bowel is not identified on this CT abdomen tethering to the cent ral mesentery is appreciated within the low pelvis involving the distal ileum, sigmoid colon, and mid ileal loop. Within the mid ileal loop and terminal ileum there is intramural fat within long segment s, sequela of chronic inflammation. Oral contrast has not extended to this point in the examination a nd therefore patent fistula cannot be evaluated for. Within the loops of mid ileum near the intramura l fat there is engorgement of the vasa recta. LYMPH NODES: Scattered prominent mesenteric lymph nodes are present measuring up to 9 mm, likely due to the known chronic inflammatory disorder. OSSEOUS STRUCTURES: No significant abnormality is seen. FREE AIR: No free air is visualized. OTHER: Fat filled umbilical hernia is again noted. IMPRESSION: 1. NO DISCRETE FLUID COLLECTION WITHIN THE LIVER. INTERVAL RESOLUTION OF THE PERIHEPATIC AND INTRAHEP ATIC ABSCESSES. RESULTANT WEDGE-SHAPED DEFECT IS APPRECIATED OF THE LIVER INVOLVING THE UNDERLYING HE PATIC PARENCHYMA, WHICH MOST LIKELY RELATES TO REACTIVE INFLAMMATORY CHANGE. 2. CHRONIC SEQUELA OF CROHN'S DISEASE WITH 3 LOOP TETHERING OF SMALL AND LARGE BOWEL IN THE VISUALIZE D LOW ABDOMEN WELL INTRAMURAL FAT AND VASA RECTA ENGORGEMENT. PATENT FISTULA CANNOT BE EVALUATE D FOR ON THIS EXAMINATION, ALTHOUGH THE TETHERING LIKELY RELATES TO FIBROSIS.
== END | disposition home or self-care (01) ==
LOC: RADPROMAIN 08:06
PROVIDERS: ATTEND Internal Medicine Infectious Disease
DX: K50.90 Crohn's disease, unspecified, without complications (principal); K31.89 Other diseases of stomach and duodenum
CPT/HCPCS: 74160; Q9967

== ENCOUNTER → 2017-04-07 | Outpatient (CLI) | payer BC ==
[~2017-04-07] MED LIST changes: -SODIUM CHLORIDE 0.9% 250 ML in EMPTY BAG 1 BAG IV PRN
[2017-04-07 09:40] VITALS: RESP 16; TEMP 99
[2017-04-07 10:53] VITALS: BP 113/67; PULSE 59
== END | disposition home or self-care (01) ==
LOC: PROCWHC3 08:57
PROVIDERS: ATTEND Physician Assistant
DX: K50.819 Crohn's disease of both small and large intestine with unspecified complications (principal)
CPT/HCPCS: 96413; 96415; J1745

== ENCOUNTER → 2017-05-26 | Outpatient (CLI) | payer BC ==
[2017-05-26 09:11] VITALS: TEMP 98.3
[2017-05-26 10:35] VITALS: PULSE 76; RESP 16
[2017-05-26 11:07] VITALS: BP 112/73
== END ==
LOC: PROCWHC3 09:04
PROVIDERS: ATTEND Internal Medicine Gastroenterology
DX: K50.819 Crohn's disease of both small and large intestine with unspecified complications (principal)
CPT/HCPCS: 96413; 96415; J1745

== ENCOUNTER → 2017-08-31 | Outpatient (CLI) | payer BC ==
--- NOTE | 2017-08-31 16:51 | PN ---
PROGRESS NOTE DATE OF SERVICE: 08/31/17 46-year-old gentleman has been [facility] for treatment of obstructive sleep apnea-hypopnea syndrome. Recently patient had a home sleep apnea test and I discussed results of sleep study with patient in detail. He has obstructive sleep apnea with apnea-hypopnea index 14.3. Subsequently, he was started on treatment with auto PAP and when he started to use treatment he feels better during the sleep and during the day. Then patient underwent colon resection for treatment of Crohn disease. At that time, he was not able to use his equipment. Presently, patient has restarted to use his CPAP. I checked CPAP unit. Usage is 21/30 for more than 4 hours, which is acceptable compliance. Average usage 5.6 hours. Pressure is 11.4 cm. Machine is in automatic regimen 5-20 cm of water. Leak is 16 L/minute, which is acceptable. Apnea-hypopnea index for the last month is 2.7, which is a acceptable range. [place] Sleepiness Scale today is 1. MEDICATIONS: Lotrel. PHYSICAL EXAM: Patient in no distress. BP 152/96, HR 80, RR 18, weight 267.2, temperature 98.6, oxygen saturation on room air 98%. Oropharynx extremely low position of soft palate. ABDOMEN: Obese. Neck Supple, no JVD. Thyroid is not palpable. LUNGS Clear to percussion and to auscultation. Good air exchange. No wheezing or rhonchi. HEART S1, S2 regular. No murmurs, gallops, or rubs. ABDOMEN : Obese. Soft and nontender. Bowel sounds are present. No organomegaly appreciated. EXTREMITIES No clubbing or cyanosis. [employer] Awake, alert, and oriented X3. Cranial nerves 2 to 7 intact. There is no fasciculation or atrophy. noted. No focal deficits observed. IMPRESSION: 1. Obstructive sleep apnea-hypopnea syndrome apnea-hypopnea index 14.3 with oxygen desaturation to 77% on control with CPAP. The patient demonstrated good compliance with treatment benefitting from treatment. 2. Crohn's disease, status post recent colon resection 3 weeks ago. 3. Hypertension. 4. Obesity. PLAN: 1. Continue treatment with CPAP every night. 2. Losing weight. 3. Sleep hygiene with regular time bed for 7.5 hours. 4. No driving if feeling sleepiness. 5. Followup visit in 1 year or earlier if patient has any problems. Thank you very much for allowing me to participate in management of your patient. Sincerely, Fredy Conn MD, PhD, FAASM Diplomat of [employer] Shade Classifier of [facility] Stanley OSCAR / AISLINN: [id number] /
== END | disposition home or self-care (01) ==
LOC: SLEEP 14:55
PROVIDERS: ATTEND Internal Medicine
DX: G47.33 Obstructive sleep apnea (adult) (pediatric) (principal); K50.10 Crohn's disease of large intestine without complications; I10 Essential (primary) hypertension; E66.9 Obesity, unspecified; Z99.89 Dependence on other enabling machines and devices; Z79.899 Other long term (current) drug therapy

== ENCOUNTER 2024-11-03 21:32 | Emergency (ER) | payer BC ==
--- NOTE | 2024-11-03 21:49 | ED ---
Wound/Laceration HPI - General Chief Complaint: Wound/Laceration Stated Complaint: Finger laceration Time Seen by Provider: 11/03/24 21:42 Source: patient, RN notes reviewed Mode of arrival: ambulatory Limitations: no limitations - History of Present Illness Initial Comments: This is a 54-year-old male presenting for left index finger laceration occurring 1 hour ago. Patient states he was working with [employer] saw and he temporarily lost control, cutting into his left index finger. Patient denies other injuries or use of blood thinners. States tetanus vaccination is not up-to-date. Onset/Timin -: hour(s) Place: home Patient Tetanus UTD: No Context: accidental Associated Symptoms: none - Related Data Home Medications Medication Instructions Recorded Confirmed Atenolol/Chlorthalidone 1 cap PO DAILY 12/13/13 05/26/17 [Atenolol/Chlorthalidone 100-25] Fenofibrate 160 mg PO DAILY 12/13/13 05/26/17 Rosuvastatin Calcium [Crestor] 20 mg PO DAILY 12/13/13 05/26/17 amLODIPine BESYLATE/BENAZEPRIL 1 cap PO DAILY 12/13/13 05/26/17 [Lotrel 5-40 MG] Acetaminophen [Tylenol] 650 mg PO Q6HR PRN 01/31/17 05/26/17 inFLIXimab [Remicade] 1 injection IVPB Q42D 01/31/17 05/26/17 Previous Rx's Medication Instructions Recorded Cephalexin [Keflex] 500 mg PO Q6HR 1 Days #20 cap 11/03/24 Allergies Allergy/AdvReac Type Severity Reaction Status Date / Time No Known Allergies Allergy Verified 11/03/24 21:35 Review of Systems ROS Statement: Those systems with pertinent positive or pertinent negative responses have been documented in the HPI. ROS Other: All systems not noted in ROS Statement are negative. Past Medical History Past Medical History: Hyperlipidemia, Hypertension Additional Past Medical History / Comment(s): Chron's disease, abdominal bowel fissures and with first one he had severe infection, small bowel is narrowing History of Any Multi-Drug Resistant Organisms: None Reported Additional Past Surgical History / Comment(s): Draining of bowel fiissure thru R side- 1995, 1996, 2003, colonoscopies., drain of liver abscess Past Anesthesia/Blood Transfusion Reactions: No Reported Reaction Past Psychological History: No Psychological Hx Reported Smoking Status: Never smoker Past Alcohol Use History: None Reported Past Drug Use History: None Reported - Past Family History Father Family Medical History: No Reported History Mother Family Medical History: No Reported History General Exam Limitations: no limitations General appearance: alert, in no apparent distress Head exam: Present: atraumatic, normocephalic, normal inspection Eye exam: Present: normal appearance, PERRL, EOMI. Absent: scleral icterus, conjunctival injection, periorbital swelling ENT exam: Present: normal exam, mucous membranes moist Neck exam: Present: normal inspection. Absent: tenderness, meningismus, lymphadenopathy Respiratory exam: Present: normal lung sounds bilaterally. Absent: respiratory distress, wheezes, rales, rhonchi, stridor Cardiovascular Exam: Present: regular rate, normal rhythm, normal heart sounds. Absent: systolic murmur, diastolic murmur, rubs, gallop, clicks GI/Abdominal exam: Present: soft, normal bowel sounds. Absent: distended, tenderness, guarding, rebound, rigid Extremities exam: Present: normal inspection, full ROM, normal capillary refill, other ("U" shaped avulsion on distal pad of left index finger crossing ventral DIP joint. Negative significant bleeding, foreign body, intrusion into distal phalange, LROM). Absent: tenderness, pedal edema, joint swelling, calf tenderness Back exam: Present: normal inspection Neurological exam: Present: alert, oriented X3, CN II-XII intact Psychiatric exam: Present: normal affect, normal mood Skin exam: Present: warm, dry, intact, normal color. Absent: rash Course Vital Signs 11/03/24 11/03/24 21:32 23:20 Temperature 97.9 F 98.6 F Pulse Rate 80 84 Respiratory 18 16 Rate Blood Pressure 135/80 111/73 O2 Sat by Pulse 98 95 Oximetry Procedures - Laceration Laceration #1 Consent Obtained: verbal consent Indication: laceration Site: other Size (cm): 3 Description: flap, avulsion Depth: involves muscle layer Anesthetic Used: lidocaine 1% Anesthesia Technique: nerve block Amount (mls): 4 Pre-repair: wound explored, irrigated extensively, wound margins revised (Distal aspect of U-shaped flap/avulsion involves only very thin layer of skin which would eventually become necrotic due to lack of perfusion and thus revised) Type of Sutures: nylon Size of Sutures: 5-0 Number of Sutures: 10 Technique: running Patient Tolerated Procedure: well, no complications Medical Decision Making - Medical Decision Making Was pt. sent in by a medical professional or institution (, [facility]ANE, [facility], urgent care, hospital, or penitentiary...) When possible be specific @ -No Did you speak to anyone other than the patient for history (EMS, parent, family, police, friend...)? What history was obtained from this source @ -No Did you review nursing and triage notes (agree or disagree)? Why? @ -I reviewed and agree with nursing and triage notes Were old charts reviewed (outside hosp., previous admission, EMS record, old EKG, old radiological studies, urgent care reports/EKG's, penitentiary records)? Report findings @ -No old charts were reviewed Differential Diagnosis (chest pain, altered mental status, abdominal pain women, abdominal pain men, vaginal bleeding, weakness, fever, dyspnea, syncope, headache, dizziness, GI bleed, back pain, seizure, CVA, palpatations, mental health, musculoskeletal)? @ -Differential Musculoskeletal Muscular strain, contusion, ligament sprain, fracture, arthritis, septic arthritis, bursitis, cellulitis, muscle spasm, nerve compression, DVT, arterial occlusion, herpes zoster, electrolyte abnormality, tumor.... This is not meant to be in all inclusive list EKG interpreted by me (3pts min.). @ -Not done X-rays interpreted by me (1pt min.). @ -None done CT interpreted by me (1pt min.). @ -None done U/S interpreted by me (1pt. min.). @ -None done What testing was considered but not performed or refused? (CT, X-rays, U/S, labs)? Why? @ -None What meds were considered but not given or refused? Why? @ -None Did you discuss the management of the patient with other professionals (professionals i.e. DIANE Puckett, E[facility]ATOR [facility]NER, lab, RT, psych nurse, social work manager, vehicle glass technician, teacher, marketing officer, case operator)? Give summary @ -No Was smoking cessation discussed for >3mins.? @ -No Was critical care preformed (if so, how long)? @ -No Were there social determinants of health that impacted care today? How? (Homelessness, low income, unemployed, alcoholism, drug addiction, transportation, low edu. Level, literacy, decrease access to med. care, penitentiary, rehab)? @ -No Was there de-escalation of care discussed even if they declined (Discuss DNR or withdrawal of care, Hospice)? DNR status @ -No What co-morbidities impacted this encounter? (DM, HTN, Smoking, COPD, CAD, Cancer, CVA, ARF, Chemo, Hep., AIDS, mental health diagnosis, sleep apnea, morbid obesity)? @ -None Was patient admitted / discharged? Hospital course, mention meds given and route, prescriptions, significant lab abnormalities, going to OR and other pertinent info. @ -Patient provided IM tetanus. Laceration repair with revision to wound edges performed under sterile conditions. Patient provided p.o. Keflex and remaining Keflex regimen sent to patient's pharmacy. Suture wound care instructions provided to patient and advised follow-up for suture removal at any medical facility in 7-10 days. Discussed patient with Dr. Guthrie. Undiagnosed new problem with uncertain prognosis? @ -No Drug Therapy requiring intensive monitoring for toxicity (Heparin, Nitro, Insulin, Cardizem)? @ -No Were any procedures done? @ -Laceration/avulsion sutured under sterile conditions. See procedure notes. Diagnosis/symptom? @ -Finger laceration/avulsion Acute, or Chronic, or Acute on Chronic? @ -Acute Uncomplicated (without systemic symptoms) or Complicated (systemic symptoms)? @ -Uncomplicated Side effects of treatment? @ -No Exacerbation, Progression, or Severe Exacerbation? @ -No Poses a threat to life or bodily function? How? (Chest pain, [place], [place], pneumonia, PE, COPD, DKA, ARF, appy, cholecystitis, CVA, Diverticulitis, Homicidal, Suicidal, threat to staff... and all critical care pts) @ -No Disposition Clinical Impression: Laceration Disposition: HOME SELF-CARE Condition: Good Instructions (If sedation given, give patient instructions): Care For Your Stitches (ED) Additional Instructions: Keep clean with antibacterial and soap and water along with dressing change twice daily. Follow-up with PCP in 1 week for suture removal. Return to ER if avulsion appears to be turning pale or black/necrotic. Prescriptions: Cephalexin [Keflex] 500 mg PO Q6HR 1 Days #20 cap Is patient prescribed a controlled substance at d/c from ED?: No Referrals: Mitra Portillo DO [Primary Care Provider] - 1-2 days Time of Disposition: 23:15
[2024-11-03] MEDS: LIDOCAINE 1% INJ 10MG/ML (20 ML MDV) SQ ONE (21:54)
[2024-11-03] MEDS: CEPHALEXIN 500 MG CAP PO STA (21:55)
[2024-11-03] MEDS: DIPH,PERTUS(ACELL)TETVAC-LF 0.5 ML VIAL IM ONE (21:55)
[2024-11-03 23:55] VITALS: BP 111/73; PULSE 84; RESP 16; TEMP 98.6
== END 2024-11-03 23:20 | disposition home or self-care (01) ==
LOC: EC 21:32
DX: S61.211A Laceration without foreign body of left index finger without damage to nail, initial encounter (principal); Z23 Encounter for immunization; W31.2XXA Contact with powered woodworking and forming machines, initial encounter
CPT/HCPCS: 90715; 99282; 12002; 90471; J2003